=== PATIENT | male | born 1980 | race Caucasian/White ===

== ENCOUNTER 2024-08-06 02:54 | Inpatient (IN) ==
[2024-08-06 03:51] LABS: Basophils # (auto) 0.03 K/uL (0.00-0.20); Basophils % (auto) 0.2 %; Eosinophils # (auto) 0.06 K/uL (0.00-0.50); Eosinophils % (auto) 0.3 %; Hematocrit (blood only) 40.9 % (42.0-52.0); Hemoglobin 13.9 g/dl (14.0-18.0); Immature Granulocytes # (auto) 0.24 K/uL (0.01-0.20); Immature Granulocytes % (auto) 1.3 %; Lymphocytes # (auto) 2.15 K/uL (1.20-3.40); Lymphocytes % (auto) 11.6 %; Mean Corpuscular Hemoglobin 30.2 pg (25.0-34.0); Mean Corpuscular Volume 88.9 fL (80.0-100.0); Mean Platelet Volume 9.8 fL (9.4-12.4); Monocytes # (auto) 2.22 K/uL (0.11-0.59); Neutrophils # (auto) 13.78 K/uL (1.40-6.50); Neutrophils % (auto) 74.6 %; Platelet Count 448 K/uL (130-400); RDW Coefficient of Variation 13.2 % (11.5-14.5); RDW Standard Deviation 42.9 fL (36.4-46.3); White Blood Count 18.48 K/ul (4.8-10.8)
[2024-08-06 04:01] LABS: BUN Creatinine Ratio 18.7 (10-20); Bilirubin Direct 0.1 mg/dl (0-0.2); Bilirubin,Total 0.5 mg/dl (0.2-1.0); Calcium 9.4 mg/dl (8.6-10.3); Creatinine Clr Calc Pharmacy 82.2 ml/min; Magnesium 1.5 mg/dl (1.7-2.4); Potassium 3.8 mmol/L (3.5-5.1); Total Protein 8.3 gm/dl (6.0-8.3)
[2024-08-06] MEDS ORDERED: VANCOMYCIN CONSULT ACTIVE PRN (04:06)
[2024-08-06 04:07] LABS: Troponin I High Sensitivity 9.9 pg/ml (0-20)
[2024-08-06] MEDS: cefTRIAXone SODIUM 2,000 MG/50 ML BAG IV STA (04:16)
[2024-08-06] MEDS: SODIUM CHLORIDE 0.9% 1,000 ML IV ONE ×3 (04:17→06:13)
[2024-08-06 04:18] LABS: Appearance Urine Clear (Clear); Bilirubin Urine Negative (Negative); Blood Urine Negative (Negative); Color Urine Yellow; Glucose Urine UA Negative (Negative); Ketones Urine Negative (Negative); Leukocyte Esterase Urine Negative (Negative); Nitrite Urine Negative (Negative); Protein Urine Negative (Negative); Specific Gravity Urine 1.007 (1.000-1.030); Urobilinogen Urine Negative (Negative); pH Urine 6.5 (4.5-7.5)
--- NOTE | 2024-08-06 04:32 | XRay Report ---
EXAM: XR chest 1V portable CLINICAL HISTORY: [facility] INPATIENT TECHNIQUE: X-ray image of the chest is obtained in AP portable projection. COMPARISON: No prior studies are available for comparison. FINDINGS: Pulmonary Parenchyma: Right lower lung zone opacity/consolidation partially obscuring cardiac shadow, likely infectious/inflammatory. The left lung is clear. There is no evidence of consolidation, collapse, or focal opacities, and no pulmonary nodules are identified. No evidence of pleural effusion or pleural thickening. Heart and Mediastinum: Heart size and shape are normal. No mediastinal widening or masses. No hilar or mediastinal lymphadenopathy. Bony Thorax: The bony thorax appears intact without fractures or deformities. Soft Tissues: Soft tissues overlying the chest wall are unremarkable. IMPRESSION: Right lower lung zone opacity/consolidation partially obscuring cardiac shadow, likely infectious/inflammatory. Clinical/lab correlation is advised. Electronically signed by Nikhil Gomez 08-06-2024 04:31 AM
[2024-08-06] MEDS: MAGNESIUM SULFATE / D5W 1 GM/100 ML BAG IV STA (04:33)
[2024-08-06 04:35] LABS: Adenovirus PCR Not Detected (NotDetected); Bordetella parapertussis PCR Not Detected (NotDetected); Bordetella pertussis PCR Not Detected (NotDetected); Chlamydia pneumoniae PCR Not Detected (NotDetected); Coronavirus 229E PCR Not Detected (NotDetected); Coronavirus CoV-2 (COVID19)PCR Not Detected (NotDetected); Coronavirus HKU1 PCR Not Detected (NotDetected); Coronavirus NL63 PCR Not Detected (NotDetected); Coronavirus OC43PCR Not Detected (NotDetected); Human Metapneumovirus PCR Not Detected (NotDetected); Influenza A PCR Not Detected (NotDetected); Influenza B PCR Not Detected (NotDetected); Mycoplasma pneumoniae PCR Not Detected (NotDetected); Parainfluenza Virus 1 PCR Not Detected (NotDetected); Parainfluenza Virus 2 PCR Not Detected (NotDetected); Parainfluenza Virus 3 PCR Not Detected (NotDetected); Parainfluenza Virus 4 PCR Not Detected (NotDetected); Respiratory Syncytial VirusPCR Not Detected (NotDetected); Rhinovirus/Enterovirus PCR Not Detected (NotDetected)
[2024-08-06] MEDS: VANCOMYCIN HCL 1,250 MG in DEXTROSE 5% 500 ML IV ONE (04:35)
[2024-08-06] MEDS: ACETAMINOPHEN 500 MG TAB PO STA (05:03)
[2024-08-06] MEDS: KETOROLAC TROMETHAMINE 15 MG/ML VIAL IV STA (05:04)
--- NOTE | 2024-08-06 05:20 | History & Physical Report ---
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 Heparin subcu Full code Text document was generated using [employer] voice recognition software. It may contain grammatical or spelling errors. Kindly contact undersigned for clarification of any documentation item in question. History of Present Illness Chief Complaint: Chills, cough Primary Care Provider: NO PCP History obtained from patient and records. Medical history significant for hypertension, hyperparathyroidism as per records, left adrenal cancer status post surgery with lung mets status post erwin rgery, ADHD, anxiety/mood disorder, neuropathy, ongoing tobacco abuse. Patient relocated to [place] 2 months ago. Has not been able to set up local PCP services. 2 days history of chills, dry cough, SOB and pleuritic right-sided chest pain. [place] like heart was skipping beats. Some nausea, no emesis. Achy headache with cough symptoms. Burning all over. No belly pain no diarrhea. Sick contacts at home. Denies aspiration. Ceftriaxone and vancomycin administered at the ER. Medical History as above Surgical History : Right finger/thumb amputation, adrenalectomy, lobectomy Family History : Breast cancer, alcohol abuse Personal/Social history : 1/2 pack daily, occasional EtOH intake, disabled Allergies Allergy/AdvReac Type Severity Reaction Status Date / Time No Known Allergies Allergy Unverified 08/06/24 04:15 Home Medications Medication Instructions Recorded Confirmed Type gabapentin 600 mg PO QID 08/06/24 08/06/24 History hydroxyzine HCl 25 mg PO TID PRN Anxiety 08/06/24 08/06/24 History Past Med/Surg History Problem List (Updated 08/06/24 @ 06:06 by Marcela Steele DO) Hypomagnesemia (Acute) Right lower lobe pneumonia (Acute) Sepsis (Acute) Social History Smoking Status: Current every day smoker Tobacco Type: Cigarettes Feels Safe at Home: Yes Review of Systems Review of Systems: As per HPI, all other systems reviewed and negative Physical Exam Physical Exam: GENERAL: uncomfortable, ill-appearing, no respiratory distress SKIN: Normal color, warm HEENT: [place] palpebral conjunctivae, no ptosis, dry buccal mucosa NECK : Supple, no tenderness CHEST : Decreased breath sounds, no tenderness HEART : Tachycardic, no obvious murmurs ABDOMEN: Some distention, nontender EXTREMITIES : No LE swelling/tenderness, no other conspicuous deformities noted NEUROLOGIC : Coherent, no facial asymmetry, no other gross focality Results & Data Results & Data Vital Signs (Past 12 Hours) Vital Signs Temp Pulse Resp BP Pulse Ox O2 Del Method 08/06/24 03:24 128 H 08/06/24 03:24 125 H 20 96 Room Air 08/06/24 02:57 37.5 C 128 H 20 131/85 95 Room Air Laboratory Results Laboratory Results WBC 18.48 K/ul (4.8-10.8) H 08/06/24 03:24 RBC 4.60 M/uL (4.70-6.10) L 08/06/24 03:24 Hgb 13.9 g/dl (14.0-18.0) L 08/06/24 03:24 Hct 40.9 % (42.0-52.0) L 08/06/24 03:24 MCV 88.9 fL (80.0-100.0) 08/06/24 03:24 MCH 30.2 pg (25.0-34.0) 08/06/24 03:24 MCHC 34.0 g/dL (32.0-36.0) 08/06/24 03:24 RDW Std Deviation 42.9 fL (36.4-46.3) 08/06/24 03:24 RDW Coeff of Kenneth 13.2 % (11.5-14.5) 08/06/24 03:24 Plt Count 448 K/uL (130-400) H 08/06/24 03:24 MPV 9.8 fL (9.4-12.4) 08/06/24 03:24 Immature Gran % (Auto) 1.3 % 08/06/24 03:24 Neut % (Auto) 74.6 % 08/06/24 03:24 Lymph % (Auto) 11.6 % 08/06/24 03:24 [place] % (Auto) 12.0 % 08/06/24 03:24 Eos % (Auto) 0.3 % 08/06/24 03:24 Baso % (Auto) 0.2 % 08/06/24 03:24 Neut # (Auto) 13.78 K/uL (1.40-6.50) H 08/06/24 03:24 Lymph # (Auto) 2.15 K/uL (1.20-3.40) 08/06/24 03:24 [place] # (Auto) 2.22 K/uL (0.11-0.59) H 08/06/24 03:24 Eos # (Auto) 0.06 K/uL (0.00-0.50) 08/06/24 03:24 Baso # (Auto) 0.03 K/uL (0.00-0.20) 08/06/24 03:24 Immature Gran # (Auto) 0.24 K/uL (0.01-0.20) H 08/06/24 03:24 Sodium 131 mmol/L (136-145) L 08/06/24 03:24 Potassium 3.8 mmol/L (3.5-5.1) 08/06/24 03:24 Chloride 102 mmol/L (98-107) 08/06/24 03:24 Carbon Dioxide 21 mmol/L (21-32) 08/06/24 03:24 Anion Gap 8 (3-11) 08/06/24 03:24 BUN 20 mg/dl (6-23) 08/06/24 03:24 Creatinine 1.07 mg/dl (0.6-1.4) 08/06/24 03:24 Est Cr Clr Drug Dosing 82.2 ml/min 08/06/24 03:24 eGFR 87.76 08/06/24 03:24 BUN/Creatinine Ratio 18.7 (10-20) 08/06/24 03:24 Glucose 139 mg/dl (70-99(Fasting)) H 08/06/24 03:24 Lactate 1.7 mmol/L (0.4-2.0) 08/06/24 03:24 Calcium 9.4 mg/dl (8.6-10.3) 08/06/24 03:24 Magnesium 1.5 mg/dl (1.7-2.4) L 08/06/24 03:24 Total Bilirubin 0.5 mg/dl (0.2-1.0) 08/06/24 03:24 Direct Bilirubin 0.1 mg/dl (0-0.2) 08/06/24 03:24 AST 16 U/L (13-39) 08/06/24 03:24 ALT 18 U/L (7-52) 08/06/24 03:24 Alkaline Phosphatase 80 U/L (34-104) 08/06/24 03:24 Troponin I High Sens 9.9 pg/ml (0-20) 08/06/24 03:24 Total Protein 8.3 gm/dl (6.0-8.3) 08/06/24 03:24 Albumin 4.0 gm/dl (3.4-5.0) 08/06/24 03:24 Procalcitonin 0.34 ng/ml (0-0.5) 08/06/24 03:24 Urine Color Yellow 08/06/24 04:12 Urine Appearance Clear (Clear) 08/06/24 04:12 Urine pH 6.5 (4.5-7.5) 08/06/24 04:12 Ur Specific [place] 1.007 (1.000-1.030) 08/06/24 04:12 Urine Protein Negative (Negative) 08/06/24 04:12 Urine Glucose (UA) Negative (Negative) 08/06/24 04:12 Urine Ketones Negative (Negative) 08/06/24 04:12 Urine Blood Negative (Negative) 08/06/24 04:12 Urine Nitrite Negative (Negative) 08/06/24 04:12 Urine Bilirubin Negative (Negative) 08/06/24 04:12 Urine Urobilinogen Negative (Negative) 08/06/24 04:12 Ur Leukocyte Esterase Negative (Negative) 08/06/24 04:12 Adenovirus (PCR) Not Detected (NotDetected) 08/06/24 03:19 B. pertussis DNA (PCR) Not Detected (NotDetected) 08/06/24 03:19 B.parapertussis DNA PCR Not Detected (NotDetected) 08/06/24 03:19 C. pneumoniae DNA (PCR) Not Detected (NotDetected) 08/06/24 03:19 Coronavirus OC43 (PCR) Not Detected (NotDetected) 08/06/24 03:19 Coronavirus HKU1 (PCR) Not Detected (NotDetected) 08/06/24 03:19 Coronavirus 229E (PCR) Not Detected (NotDetected) 08/06/24 03:19 SARS-CoV-2 (PCR) Not Detected (NotDetected) 08/06/24 03:19 Coronavirus NL63 (PCR) Not Detected (NotDetected) 08/06/24 03:19 Human Metapneumovir PCR Not Detected (NotDetected) 08/06/24 03:19 Influenza Type A (PCR) Not Detected (NotDetected) 08/06/24 03:19 Influenza Type B (PCR) Not Detected (NotDetected) 08/06/24 03:19 M. pneumoniae (PCR) Not Detected (NotDetected) 08/06/24 03:19 Parainfluenza 1 (PCR) Not Detected (NotDetected) 08/06/24 03:19 Parainfluenza 2 (PCR) Not Detected (NotDetected) 08/06/24 03:19 Parainfluenza 3 (PCR) Not Detected (NotDetected) 08/06/24 03:19 Parainfluenza 4 (PCR) Not Detected (NotDetected) 08/06/24 03:19 RSV (PCR) Not Detected (NotDetected) 08/06/24 03:19 Entero/Rhino (PCR) Not Detected (NotDetected) 08/06/24 03:19 Impressions Chest X-Ray 08/06/24 03:06 EXAM: XR chest 1V portable CLINICAL HISTORY: [facility] INPATIENT TECHNIQUE: X-ray image of the chest is obtained in AP portable projection. COMPARISON: No prior studies are available for comparison. FINDINGS: Pulmonary Parenchyma: Right lower lung zone opacity/consolidation partially obscuring cardiac shadow, likely infectious/inflammatory. The left lung is clear. There is no evidence of consolidation, collapse, or focal opacities, and no pulmonary nodules are identified. No evidence of pleural effusion or pleural thickening. Heart and Mediastinum: Heart size and shape are normal. No mediastinal widening or masses. No hilar or mediastinal lymphadenopathy. Bony Thorax: The bony thorax appears intact without fractures or deformities. Soft Tissues: Soft tissues overlying the chest wall are unremarkable. IMPRESSION: Right lower lung zone opacity/consolidation partially obscuring cardiac shadow, likely infectious/inflammatory. Clinical/lab correlation is advised. Electronically signed by Nikhil Gomez 08-06-2024 04:31 AM Diagnostic Findings EKG as per my interpretation : Rate 125, sinus tachycardia, normal axis, incomplete RBBB, no ischemia (1) Sepsis Sepsis acute organ dysfunction status: without acute organ dysfunction Sepsis type: sepsis due to unspecified organism Qualified Code(s): A41.9 - Sepsis, unspecified organism
[2024-08-06] MEDS ORDERED: PROMETHAZINE 6.25 MG/50.25 ML BAG IV PRN (05:52)
[2024-08-06 05:59] LABS: Thyroid Stimulating Hormone 0.686 uIu/ml (0.300-4.500)
[2024-08-06] MEDS: DOXYCYCLINE HYCLATE 100 MG in DEXTROSE 5% MINI-B 100 ML IV STA (06:04)
[2024-08-06] MEDS: MAGNESIUM SULFATE / D5W 1 GM/100 ML BAG IV ONE (06:06)
--- NOTE | 2024-08-06 06:06 | Emergency Department Note ---
Impression & Plan Sepsis, Right lower lobe pneumonia, Hypomagnesemia Admit to the [facility] ED Provider Note NAME: QIAN RIOS AGE: 44 SEX: Male INFORMANT: Patient ED PROVIDER(S): Marcela Steele DO CHIEF COMPLAINT: cough, chills and bodyaches PLAN: Disposition: admit to the [facility] MEDICAL DECISION MAKING: this is a 44-year-old male patient with an extensive past medical history who presents to the emergency department complaining of cough, body aches, chills, dizziness and headache. 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 On presentation, the patient is febrile and significantly tachycardic. Blood pressure is stable. IV lock was initiated and a septic protocol was performed. 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 He was bolused with IV normal saline solution per septic protocol. Laboratory studies revealed significant leukocytosis with a white count of 18.4. H&H were stable. Platelet count was elevated at 448 most likely consistent with hemoconcentration. Sodium was low at 131. Glucose was elevated at 139. Magnesium was low at 1.5. Troponin was negative. Upper respiratory bio fire testing was negative. The patient was given oral Tylenol for his fever. He was given IV Toradol for his diffuse bodyaches. His magnesium was replaced. Chest x-ray did show evidence of right lower lobe infiltrate which is most likely the source of his infection. He was bolused with a second liter of IV normal saline to meet 30 mL/kg bolus for sepsis. His heart rate began to come down nicely. [facility] for [facility] care. Care/management discussed with: construction sales manager and [facility] Triage Nursing notes: reviewed and agree with them. 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 The patient explains that he still has 1 adrenal gland. Differential Diagnosis: Sepsis, UTI, pneumonia, COVID, URI, bronchitis, bacteremia Diagnostics, independently interpreted by me: ECG: Sinus tachycardia at [address] segment elevation or signs of ischemia. There is no ectopy. Cardiac Monitoring: Sinus tachycardia at 126 Imaging studies: Proper chest x-ray: As per my independent interpretation-the patient has evidence of right lower lobe pneumonia. HPI: 44 year old Male arrives for evaluation of cough, chills and bodyaches. Patient developed symptoms earlier today. He is convinced he has a fever and believes he may have pneumonia as he had exposure through his who is a teacher and has students who have been diagnosed with pneumonia.. PAST MEDICAL HISTORY: Adrenal cortical carcinoma, asplenic, previous lung resection SOCIAL HISTORY: Lives with his , current smoker HOME MEDICATIONS: None ALLERGIES: None VITALS: See Below PHYSICAL EXAMINATION: HEENT: Head - normocephalic and atraumatic. Pupils are equal, round, and reactive to light. Extraocular eye muscles are intact, and sclera are anicteric. Nose - moist nasal mucosa without discharge. Mouth -dry buccal mucosa. Oropharynx is nonerythematous and there is no tonsillar exudate or edema noted. Neck: Supple; no nuchal rigidity Heart: Tachycardic rate and regular rhythm. There is a normal S1 and S2 with no murmurs, clicks, or gallops appreciated. Lungs: Clear to auscultation bilaterally with no wheezes, rales, or rhonchi. Abdomen: Soft, completely nontender, nondistended, with good bowel sounds. There are no palpable pulsatile masses or hepatosplenomegaly. There is no guarding, rigidity, or rebound noted. Extremities: No evidence of cyanosis, clubbing, or edema. There are easily palpable peripheral pulses. Skin: Hot and dry with good turgor and no rashes. Emergency department treatment: electronic device monitor, IV normal saline bolus x 2 L, IV Toradol, oral oral Tylenol, IV magnesium replacement, IV Rocephin, IV vancomycin Emergency department course: The patient was evaluated in room A-2. A complete history and physical was performed. A septic protocol was performed. Patient was bolused with a liter of normal saline solution. He was given a dose of oral Tylenol for his fever. He was given a dose of IV Toradol for his diffuse bodyaches. An upper respiratory bio fire test was obtained. A portable chest x-ray was performed. An order was placed for continuous cardiac monitoring. The patient was in a sinus tachycardia at a rate of 126. A twelve-lead EKG was obtained. The patient was noted to be asplenic and there was concern for sepsis. He was immediately started on IV Rocephin and IV vancomycin after blood cultures have been obtained. He was noted to be hypomagnesemic. He was started on magnesium replacement. Portable chest x-ray revealed evidence of a pneumonia. He remained hemodynamically stable and O2 saturations were stable. I discussed the case with the [facility] and they will evaluate for further inpatient care. I have personally spent greater than 60 minutes of critical care time in the direct management of this patient. This includes bedside care, interpretation of diagnostic studies, and testing, discussion with consultants, patient, and family members, and other required patient management activities. This 60 minutes is in excess of all separately billable procedures.: [none] Past Med/Surg History Problem List (Updated 08/06/24 @ 06:06 by Marcela Steele DO) Hypomagnesemia (Acute) Right lower lobe pneumonia (Acute) Sepsis (Acute) Social History Smoking Status: Current every day smoker Tobacco Type: Cigarettes Cigarettes Per Day: 3; Second Hand Exposure: Yes; Do You Dip or Chew Tobacco: No; Tobacco Cessation Education Requested by Patient: No Hx Alcohol Use: No Hx Substance Use: Yes Last Used Substance: Days (ago) Preferred Language: Divehi Analyst Food And Beverage Required: No Beliefs That Will Affect Care: None Current Living Situation: Other Current Living Situation Comment: Living in [facility] with a roommate Feels Safe at Home: Yes Safety Concerns: Feels Safe At This Time Assistive Devices: Denture - Upper, Denture - Lower and Glasses Allergies Allergies Allergy/AdvReac Type Severity Reaction Status Date / Time No Known Allergies Allergy Unverified 08/06/24 04:15 Home Meds Home Medications Medication Instructions Recorded Confirmed gabapentin 600 mg PO QID 08/06/24 08/06/24 hydroxyzine HCl 25 mg PO TID PRN Anxiety 08/06/24 08/06/24 Results & Data (ED) Vital Signs Vital Signs - 24 hr 08/06/24 02:57 08/06/24 03:24 08/06/24 03:24 Temperature 37.5 C Temperature Source Temporal Artery Scan Pulse Rate 128 H 125 H 128 H Pulse Rate from SpO2 Sensor Pulse Rhythm Regular Respiratory Rate 20 20 Respiratory Effort / Characteristics Non-Labored Respiratory Depth Normal Blood Pressure 131/85 Blood Pressure Mean 100 Pulse Oximetry 95 96 Oxygen Delivery Method Room Air Room Air Sepsis Recent Fever Within 48 Hours No Sepsis New/Unexplained Change in Mental Status No Sepsis Action Taken by Nursing No Action Required 08/06/24 03:42 08/06/24 04:48 08/06/24 05:06 Temperature Temperature Source Pulse Rate 130 H 118 H 115 H Pulse Rate from SpO2 Sensor 130 H 119 H Pulse Rhythm Respiratory Rate 24 21 20 Respiratory Effort / Characteristics Respiratory Depth Blood Pressure 104/84 117/79 119/90 Blood Pressure Mean 90 91 99 Pulse Oximetry 95 98 Oxygen Delivery Method Sepsis Recent Fever Within 48 Hours Sepsis New/Unexplained Change in Mental Status Sepsis Action Taken by Nursing 08/06/24 05:30 Temperature Temperature Source Pulse Rate 118 H Pulse Rate from SpO2 Sensor 118 H Pulse Rhythm Respiratory Rate 17 Respiratory Effort / Characteristics Respiratory Depth Blood Pressure 111/77 Blood Pressure Mean 88 Pulse Oximetry 96 Oxygen Delivery Method Sepsis Recent Fever Within 48 Hours Sepsis New/Unexplained Change in Mental Status Sepsis Action Taken by Nursing Laboratory Data 08/06/24 03:24 08/06/24 03:24 Lab Results 08/06/24 08/06/24 08/06/24 Range/Units 03:19 03:24 04:12 WBC 18.48 H (4.8-10.8) K/ul RBC 4.60 L (4.70-6.10) M/uL Hgb 13.9 L (14.0-18.0) g/dl Hct 40.9 L (42.0-52.0) % MCV 88.9 (80.0-100.0) fL MCH 30.2 (25.0-34.0) pg MCHC 34.0 (32.0-36.0) g/dL RDW Std Deviation 42.9 (36.4-46.3) fL RDW Coeff of Kenneth 13.2 (11.5-14.5) % Plt Count 448 H (130-400) K/uL MPV 9.8 (9.4-12.4) fL Immature Gran % (Auto) 1.3 % Neut % (Auto) 74.6 % Lymph % (Auto) 11.6 % [place] % (Auto) 12.0 % Eos % (Auto) 0.3 % Baso % (Auto) 0.2 % Neut # (Auto) 13.78 H (1.40-6.50) K/uL Lymph # (Auto) 2.15 (1.20-3.40) K/uL [place] # (Auto) 2.22 H (0.11-0.59) K/uL Eos # (Auto) 0.06 (0.00-0.50) K/uL Baso # (Auto) 0.03 (0.00-0.20) K/uL Immature Gran # (Auto) 0.24 H (0.01-0.20) K/uL Sodium 131 L (136-145) mmol/L Potassium 3.8 (3.5-5.1) mmol/L Chloride 102 (98-107) mmol/L Carbon Dioxide 21 (21-32) mmol/L Anion Gap 8 (3-11) BUN 20 (6-23) mg/dl Creatinine 1.07 (0.6-1.4) mg/dl Est Cr Clr Drug Dosing 82.2 ml/min eGFR 87.76 BUN/Creatinine Ratio 18.7 (10-20) Glucose 139 H (70-99(Fasting)) mg/dl Estimat Average Glucose 120 mg/dl Hemoglobin A1c 5.8 H (4.5-5.6) % Osmolality 283 (280-300) mOsm/kg Lactate 1.7 (0.4-2.0) mmol/L Calcium 9.4 (8.6-10.3) mg/dl Magnesium 1.5 L (1.7-2.4) mg/dl Total Bilirubin 0.5 (0.2-1.0) mg/dl Direct Bilirubin 0.1 (0-0.2) mg/dl AST 16 (13-39) U/L ALT 18 (7-52) U/L Alkaline Phosphatase 80 (34-104) U/L Troponin I High Sens 9.9 (0-20) pg/ml Total Protein 8.3 (6.0-8.3) gm/dl Albumin 4.0 (3.4-5.0) gm/dl Procalcitonin 0.34 (0-0.5) ng/ml TSH 0.686 (0.300-4.500) uIu/ml Urine Color Yellow Urine Appearance Clear (Clear) Urine pH 6.5 (4.5-7.5) Ur Specific [place] 1.007 (1.000-1.030) Urine Protein Negative (Negative) Urine Glucose (UA) Negative (Negative) Urine Ketones Negative (Negative) Urine Blood Negative (Negative) Urine Nitrite Negative (Negative) Urine Bilirubin Negative (Negative) Urine Urobilinogen Negative (Negative) Ur Leukocyte Esterase Negative (Negative) Adenovirus (PCR) Not Detected (NotDetected) B. pertussis DNA (PCR) Not Detected (NotDetected) B.parapertussis DNA PCR Not Detected (NotDetected) C. pneumoniae DNA (PCR) Not Detected (NotDetected) Coronavirus OC43 (PCR) Not Detected (NotDetected) Coronavirus HKU1 (PCR) Not Detected (NotDetected) Coronavirus 229E (PCR) Not Detected (NotDetected) SARS-CoV-2 (PCR) Not Detected (NotDetected) Coronavirus NL63 (PCR) Not Detected (NotDetected) Human Metapneumovir PCR Not Detected (NotDetected) Influenza Type A (PCR) Not Detected (NotDetected) Influenza Type B (PCR) Not Detected (NotDetected) M. pneumoniae (PCR) Not Detected (NotDetected) Parainfluenza 1 (PCR) Not Detected (NotDetected) Parainfluenza 2 (PCR) Not Detected (NotDetected) Parainfluenza 3 (PCR) Not Detected (NotDetected) Parainfluenza 4 (PCR) Not Detected (NotDetected) RSV (PCR) Not Detected (NotDetected) Entero/Rhino (PCR) Not Detected (NotDetected) Administered Medications Acetaminophen (Acetaminophen 325 Mg Tab) 650 mg PO QID PRN PRN Reason: pain/fever Stop: 09/05/24 05:51 Last Admin: 08/06/24 12:39 Dose: 650 mg Documented By: NARESH Docusate Sodium (Docusate Sodium 100 Mg Cap) 100 mg PO QAM [facility] Stop: 09/05/24 11:59 Last Admin: 08/06/24 12:34 Dose: Not Given Documented By: NARESH Enoxaparin Sodium (Enoxaparin Inj 30 Mg/0.3 Ml Syr) 30 mg SQ QAM [facility] Stop: 09/05/24 08:59 Last Admin: 08/06/24 09:46 Dose: 30 mg Documented By: NARESH Gabapentin (Gabapentin 600 Mg Tab) 600 mg PO QID [place] Stop: 09/05/24 08:59 Last Admin: 08/06/24 17:51 Dose: 600 mg Documented By: Admin: 08/06/24 12:35 Dose: 600 mg Documented By: Admin: 08/06/24 09:47 Dose: 600 mg Documented By: NARESH Guaifenesin (Guaifenesin 600 Mg Tabcr) 600 mg PO Q12 ANSON Stop: 09/05/24 07:14 Last Admin: 08/06/24 09:47 Dose: 600 mg Documented By: NARESH Hydroxyzine HCl (Hydroxyzine Hcl 25 Mg Tab) 25 mg PO TID PRN PRN Reason: Anxiety Stop: 09/05/24 05:58 Last Admin: 08/06/24 09:17 Dose: 25 mg Documented By: NARESH Oxycodone HCl (Oxycodone Hcl Ir 5 Mg Tab (Immediate Release)) 5 mg PO Q4H PRN PRN Reason: Pain Stop: 08/20/24 05:51 Last Admin: 08/06/24 17:51 Dose: 5 mg Documented By: Admin: 08/06/24 09:17 Dose: 5 mg Documented By: NARESH Discontinued Medications Acetaminophen (Acetaminophen 500 Mg Tab) 1,000 mg PO NOW STA Stop: 08/06/24 04:52 Last Admin: 08/06/24 05:03 Dose: 1,000 mg Documented By: JEIYM Sodium Chloride (Nss) 1,000 mls @ 999 mls/hr IV .Q1H1M ONE Stop: 08/06/24 05:01 Last Infusion: 08/06/24 06:20 Dose: Infused Documented By: Admin: 08/06/24 04:17 Dose: 999 mls/hr Documented By: JEIMY Vancomycin HCl 1,250 mg/ (Dextrose) 525 mls @ 200 mls/hr IV NOW ONE Stop: 08/06/24 06:43 Last Infusion: 08/06/24 06:20 Dose: Infused Documented By: Admin: 08/06/24 04:35 Dose: 200 mls/hr Documented By: JEIMY Ceftriaxone Sodium (Rocephin) 2,000 mg in 50 mls @ 100 mls/hr IV NOW STA Stop: 08/06/24 04:35 Last Infusion: 08/06/24 04:32 Dose: Infused Documented By: Admin: 08/06/24 04:16 Dose: 100 mls/hr Documented By: JEIMY Sodium Chloride (Nss) 1,000 mls @ 999 mls/hr IV .Q1H1M ONE Stop: 08/06/24 05:12 Last Infusion: 08/06/24 06:20 Dose: Infused Documented By: Admin: 08/06/24 04:18 Dose: 999 mls/hr Documented By: JEIMY Magnesium Sulfate/Dextrose (Magnesium Sulfate / D5w) 1 gm in 100 mls @ 100 mls/hr IV NOW STA Stop: 08/06/24 05:16 Last Infusion: 08/06/24 06:20 Dose: Infused Documented By: Admin: 08/06/24 04:33 Dose: 100 mls/hr Documented By: JEIMY Magnesium Sulfate/Dextrose (Magnesium Sulfate / D5w) 1 gm in 100 mls @ 50 mls/hr IV ONE ONE Stop: 08/06/24 07:11 Last Infusion: 08/06/24 08:25 Dose: Infused Documented By: Admin: 08/06/24 06:06 Dose: 50 mls/hr Documented By: JEIMY Doxycycline Hyclate 100 mg/ (Dextrose) 100 mls @ 50 mls/hr IV NOW STA Stop: 08/06/24 07:13 Last Infusion: 08/06/24 08:21 Dose: Infused Documented By: Admin: 08/06/24 06:04 Dose: 50 mls/hr Documented By: JEIMY Sodium Chloride (Nss) 1,000 mls @ 80 mls/hr IV .[id number] ONE Stop: 08/06/24 18:23 Last Admin: 08/06/24 06:13 Dose: 80 mls/hr Documented By: JEIMY Famotidine (Pepcid 20mg Iv Push) 20 mg in 5 mls @ 2.5 mls/min IV NOW STA Stop: 08/06/24 05:55 Last Admin: 08/06/24 06:13 Dose: 2.5 mls/min Documented By: JEIMY Ioversol (Optiray 320 125ml) 112 ml IV ONCE ONE Stop: 08/06/24 06:44 Last Admin: 08/06/24 06:44 Dose: 112 ml Documented By: CORBY Ketorolac Tromethamine (Ketorolac Tromethamine 15 Mg/Ml Vial) 15 mg IV NOW STA Stop: 08/06/24 04:52 Last Admin: 08/06/24 05:04 Dose: 15 mg Documented By: JEIMY Imaging Data Radiologist's Impression: Chest X-Ray 08/06/24 03:06 EXAM: XR chest 1V portable CLINICAL HISTORY: SEPSIS JMF INPATIENT TECHNIQUE: X-ray image of the chest is obtained in AP portable projection. COMPARISON: No prior studies are available for comparison. FINDINGS: Pulmonary Parenchyma: Right lower lung zone opacity/consolidation partially obscuring cardiac shadow, likely infectious/inflammatory. The left lung is clear. There is no evidence of consolidation, collapse, or focal opacities, and no pulmonary nodules are identified. No evidence of pleural effusion or pleural thickening. Heart and Mediastinum: Heart size and shape are normal. No mediastinal widening or masses. No hilar or mediastinal lymphadenopathy. Bony Thorax: The bony thorax appears intact without fractures or deformities. Soft Tissues: Soft tissues overlying the chest wall are unremarkable. IMPRESSION: Right lower lung zone opacity/consolidation partially obscuring cardiac shadow, likely infectious/inflammatory. Clinical/lab correlation is advised. Electronically signed by Nikhil Gomez 08-06-2024 04:31 AM Discharge Plan Visit Data Chief Complaint: Illness Stated Complaint: POSSIBLE PNEUMONIA,RENAL CX PT ED Provider: Marcela Steele Discharge Problem: Sepsis, Right lower lobe pneumonia, Hypomagnesemia Patient Disposition: Admitted As Inpatient Discharge Instructions Interventions: ED Discharge Assessment Last Done: 08/06/24 08:22 Discharge Problem: Sepsis Qualifiers: Sepsis type: sepsis due to unspecified organism Sepsis acute organ dysfunction status: without acute organ dysfunction Qualified Code(s): A41.9 - Sepsis, unspecified organism
[2024-08-06] MEDS: FAMOTIDINE 20MG IV PUSH 20 MG/5 ML SYR IV STA (06:13)
[2024-08-06] MEDS: OPTIRAY 320 125ml IV ONE (06:44)
--- NOTE | 2024-08-06 07:28 | CT Scan Report ---
EXAM: CT angio chest PE protocol CLINICAL HISTORY: Pt c/o having chills, "heart skipping beats and i''m forgetting to breathe," cough - all started today. 112ml opti 320 INPATIENT TECHNIQUE: CT angiography of the chest was performed with and without intravenous contrast with the following protocol: axial images with, reconstructed coronal and sagittal images. Non-contrast images were initially acquired, followed by contrast-enhanced images (112ml Optiray 320) in arterial and venous phases. Intravenous contrast [name and volume] was administered using automated injection techniques. Bolus tracking was employed to optimize arterial phase imaging. One of these 3D techniques was utilized: Maximum Intensity Pixel (MIP), 3D Reconstructed Images, Volume Rendered Images, Surface Shaded Rendering. One of the following dose reduction techniques was utilized for this exam: Automated exposure control, adjustment of the mA and/or kV according to patient size, and use of iterative reconstruction. COMPARISON: x-ray 08/06/2024. FINDINGS: Aorta and Great Vessels: Ascending Aorta: Normal in caliber, no aneurysm, dissection, or significant atherosclerosis. Aortic Arch: Normal in caliber, no aneurysm, dissection, or significant atherosclerosis. Descending Aorta: Normal in caliber, no aneurysm, dissection, or significant atherosclerosis. Pulmonary Arteries: The main pulmonary artery and its branches are patent. No evidence of pulmonary embolism or significant stenosis. Heart: Cardiac Chambers: Normal in size. No evidence of cardiomegaly. Pericardium: No pericardial effusion or thickening. Lungs and Pleura: An ill-defined consolidation was noted in the right lower lobe with an air bronchogram suggesting pneumonia. Patchy small consolidations were noted in the right middle lobe and the right upper lobe. No pleural effusion or pleural thickening. Mediastinum: A few moderate-sized lymph nodes were in the right koki and behind the SVC measuring up to 1.7cm representing reactive lymph nodes, A few calcified mediastinal lymph nodes (nonspecific) Normal appearance of the trachea and central bronchi. Hilar Structures: Hilar structures are normal without enlargement. Chest Wall: No mass lesions or abnormalities in the chest wall. Vascular Structures: Superior Vena Cava: Patent without evidence of stenosis or thrombus. Inferior Vena Cava: Patent without evidence of stenosis or thrombus. Bones and Soft Tissues: No fractures, lytic, or blastic lesions of the visualized bony structures. Soft tissues are unremarkable. IMPRESSION: 1. No evidence of pulmonary embolism or significant stenosis. 2. An ill-defined consolidation was noted in the right lower lobe with an air bronchogram suggesting pneumonia, with a few reactive mediastinal lymph nodes Electronically signed by Rosenda Sosa 08-06-2024 07:28 AM
[2024-08-06 07:41] LABS: Estimated Average Glucose 120 mg/dl; Hemoglobin A1C 5.8 % (4.5-5.6)
[2024-08-06] MEDS: hydrOXYzine HCl 25 MG TAB PO PRN (09:17)
[2024-08-06] MEDS: oxyCODONE HCL IR 5 MG TAB (IMMEDIATE RELEASE) PO PRN (09:17)
[2024-08-06] MEDS: ENOXAPARIN INJ 30 MG/0.3 ML SYR SQ SCH (09:46)
[2024-08-06] MEDS: guaiFENesin 600 MG TABCR PO SCH (09:47)
[2024-08-06] MEDS: GABAPENTIN 600 MG TAB PO SCH (09:47)
[2024-08-06] MEDS: DOCUSATE SODIUM 100 MG CAP PO SCH (12:34)
[2024-08-06] MEDS: ACETAMINOPHEN 325 MG TAB PO PRN (12:39)
--- NOTE | 2024-08-06 15:32 | Electrocardiogram Report ---
Test Reason : Blood Pressure : */* mmHG Vent. Rate : 125 BPM Atrial Rate : 125 BPM P-R Int : 152 ms QRS Dur : 92 ms QT Int : 304 ms P-R-T Axes : 71 53 69 degrees QTcB Int : 438 ms Sinus tachycardia Incomplete right bundle branch block Borderline ECG No previous ECGs available Confirmed by Jordi Tamayo ([id number]) on 08/06/2024 3:31:42 PM Referred By: REFERRED SELF Confirmed By: Jordi Tamayo
[2024-08-06] MEDS: DOXYCYCLINE HYCLATE 100 MG CAP PO SCH (20:39)
[2024-08-07] MEDS: NSS + 20MEQ KCL 20 MEQ/1,000 ML BAG IV ONE (00:43)
[2024-08-07] MEDS: cefTRIAXone SODIUM 2,000 MG/50 ML BAG IV SCH (04:03)
[2024-08-07 06:16] LABS: Basophils # (auto) 0.08 K/uL (0.00-0.20); Basophils % (auto) 0.4 %; Eosinophils # (auto) 0.11 K/uL (0.00-0.50); Eosinophils % (auto) 0.5 %; Hematocrit (blood only) 34.9 % (42.0-52.0); Hemoglobin 11.7 g/dl (14.0-18.0); Immature Granulocytes # (auto) 0.39 K/uL (0.01-0.20); Immature Granulocytes % (auto) 1.8 %; Lymphocytes # (auto) 3.89 K/uL (1.20-3.40); Lymphocytes % (auto) 17.6 %; Mean Corpuscular Hemoglobin 30.1 pg (25.0-34.0); Mean Corpuscular Hgb Conc 33.5 g/dL (32.0-36.0); Mean Corpuscular Volume 89.7 fL (80.0-100.0); Monocytes % (auto) 9.9 %; Neutrophils # (auto) 15.46 K/uL (1.40-6.50); Neutrophils % (auto) 69.8 %; Platelet Count 420 K/uL (130-400); RDW Coefficient of Variation 13.8 % (11.5-14.5); Red Blood Count 3.89 M/uL (4.70-6.10); White Blood Count 22.13 K/ul (4.8-10.8)
[2024-08-07 06:38] LABS: BUN Creatinine Ratio 15.5 (10-20); Calcium 8.7 mg/dl (8.6-10.3); Creatinine Clr Calc Pharmacy 76.1 ml/min; Magnesium 1.7 mg/dl (1.7-2.4); Phosphorus 2.3 mg/dl (2.5-4.9); Potassium 4.2 mmol/L (3.5-5.1)
[2024-08-07] MEDS ORDERED: POTASSIUM PHOS 3 MMOL/1 ML INFUSION IV STA (07:34)
--- NOTE | 2024-08-07 07:41 | Hospitalist Progress Note ---
Date of Service August 07, 2024 Assessment & Plan (1) Sepsis: Plan: Secondary to community-acquired pneumonia Chest pain secondary to above rule out PE given pleuritic discomfort CT chest IMPRESSION: 1. No evidence of pulmonary embolism or significant stenosis. 2. 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 Heparin subcu Full code Pt relocated to this area about 2 months ago - will need to establish w/ PCP Admission and Anticipated Discharge Date Admission Date: August 06, 2024 Subjective Pt seen in follow up of [facility] Laying in bed in [facility], overall feeling better. Still with headache + cough no chest pain or shortness of breath, no abd. pain, n/v Review of Systems Review of Systems: All systems reviewed & are unremarkable except as noted in Subjective Physical Exam Physical Exam: GENERAL: thin M in NAD HEENT: NC/AT, EOMI NECK : Supple CHEST : Decreased breath sounds, no tenderness HEART : mildly tachycardic, no obvious murmurs ABDOMEN: soft, some distention, nontender EXTREMITIES : No LE swelling/tenderness, moves extremities NEUROLOGIC : awake, alert, oriented, answers appropriately, no facial asymmetry, moves extremities SKIN: warm, dry Results & Data Results & Data Vital Signs (Past 12 Hours) Vital Signs Temp Pulse Pulse Resp BP Pulse Ox O2 Del Method 08/07/24 07:00 94 H 08/07/24 03:14 37 C 90 16 105/71 97 Room Air 08/06/24 23:25 37 C 102 H 14 116/78 97 Room Air 08/06/24 21:50 110 H 08/06/24 21:45 Room Air 08/06/24 19:36 36.5 C 91 H 16 104/70 96 Room Air Laboratory Results 08/07/24 08/06/24 Range/Units 05:46 03:24 WBC 22.13 H (4.8-10.8) K/ul RBC 3.89 L (4.70-6.10) M/uL Hgb 11.7 L (14.0-18.0) g/dl Hct 34.9 L (42.0-52.0) % MCV 89.7 (80.0-100.0) fL MCH 30.1 (25.0-34.0) pg MCHC 33.5 (32.0-36.0) g/dL RDW Std Deviation 45.0 (36.4-46.3) fL RDW Coeff of Kenneth 13.8 (11.5-14.5) % Plt Count 420 H (130-400) K/uL MPV 10.0 (9.4-12.4) fL Immature Gran % (Auto) 1.8 % Neut % (Auto) 69.8 % Lymph % (Auto) 17.6 % [place] % (Auto) 9.9 % Eos % (Auto) 0.5 % Baso % (Auto) 0.4 % Neut # (Auto) 15.46 H (1.40-6.50) K/uL Lymph # (Auto) 3.89 H (1.20-3.40) K/uL [place] # (Auto) 2.20 H (0.11-0.59) K/uL Eos # (Auto) 0.11 (0.00-0.50) K/uL Baso # (Auto) 0.08 (0.00-0.20) K/uL Immature Gran # (Auto) 0.39 H (0.01-0.20) K/uL Sodium 136 (136-145) mmol/L Potassium 4.2 (3.5-5.1) mmol/L Chloride 109 H (98-107) mmol/L Carbon Dioxide 23 (21-32) mmol/L Anion Gap 4 (3-11) BUN 15 (6-23) mg/dl Creatinine 0.97 (0.6-1.4) mg/dl Est Cr Clr Drug Dosing 76.1 ml/min eGFR 98.72 BUN/Creatinine Ratio 15.5 (10-20) Glucose 104 H (70-99(Fasting)) mg/dl Estimat Average Glucose 120 mg/dl Hemoglobin A1c 5.8 H (4.5-5.6) % Calcium 8.7 (8.6-10.3) mg/dl Phosphorus 2.3 L (2.5-4.9) mg/dl Magnesium 1.7 (1.7-2.4) mg/dl Medications Administered Current Inpatient Medications Acetaminophen (Acetaminophen 325 Mg Tab) 650 mg PO QID PRN PRN Reason: pain/fever Stop: 09/05/24 05:51 Last Admin: 08/06/24 12:39 Dose: 650 mg Docusate Sodium (Docusate Sodium 100 Mg Cap) 100 mg PO QAM [facility] Stop: 09/05/24 11:59 Last Admin: 08/06/24 12:34 Dose: Not Given Doxycycline Hyclate (Doxycycline Hyclate 100 Mg Cap) 100 mg PO BID [facility] Stop: 08/13/24 20:59 Last Admin: 08/06/24 20:39 Dose: 100 mg Enoxaparin Sodium (Enoxaparin Inj 30 Mg/0.3 Ml Syr) 30 mg SQ QAM [facility] Stop: 09/05/24 08:59 Last Admin: 08/06/24 09:46 Dose: 30 mg Gabapentin (Gabapentin 600 Mg Tab) 600 mg PO QID [facility] Stop: 09/05/24 08:59 Last Admin: 08/06/24 20:39 Dose: 600 mg Guaifenesin (Guaifenesin 600 Mg Tabcr) 600 mg PO Q12 [facility] Stop: 09/05/24 07:14 Last Admin: 08/06/24 20:39 Dose: 600 mg Hydroxyzine HCl (Hydroxyzine Hcl 25 Mg Tab) 25 mg PO TID PRN PRN Reason: Anxiety Stop: 09/05/24 05:58 Last Admin: 08/06/24 09:17 Dose: 25 mg Promethazine HCl (Phenergan) 6.25 mg in 50.25 mls @ 201 mls/hr IV Q6H PRN PRN Reason: Nausea And Vomiting Stop: 09/05/24 05:51 Ceftriaxone Sodium (Rocephin) 2,000 mg in 50 mls @ 100 mls/hr IV Q24H [facility] Stop: 08/14/24 03:59 Last Infusion: 08/07/24 04:33 Dose: Infused Potassium Chloride/Sodium Chloride (Normal Saline W/20 Meq Kcl) 20 meq in 1,000 mls @ 100 mls/hr IV .Q10H ONE Stop: 08/07/24 09:42 Last Admin: 08/07/24 00:43 Dose: 100 mls/hr Magnesium Sulfate/Dextrose (Magnesium Sulfate / D5w) 1 gm in 100 mls @ 50 mls/hr IV ONE ONE Stop: 08/07/24 09:33 Oxycodone HCl (Oxycodone Hcl Ir 5 Mg Tab (Immediate Release)) 5 mg PO Q4H PRN PRN Reason: Pain Stop: 08/20/24 05:51 Last Admin: 08/07/24 00:47 Dose: 5 mg Potassium Phosphate (Potassium Phos 3 Mmol/1 Ml Infusion) 6 mmol IV NOW STA Stop: 08/07/24 07:35 (1) Sepsis Sepsis acute organ dysfunction status: without acute organ dysfunction Sepsis type: sepsis due to unspecified organism Qualified Code(s): A41.9 - Sepsis, unspecified organism
[2024-08-07] MEDS: POT PHOSPHATE MONOBASIC W/ SOD TAB PO SCH (08:39)
[2024-08-07] MEDS: MAGNESIUM SULFATE / D5W 1 GM/100 ML BAG IV ONE (08:39)
[2024-08-07] MEDS: TAMSULOSIN HCL 0.4 MG CAP PO SCH (17:46)
[2024-08-07] MEDS: SODIUM CHLORIDE 0.65% NA SOLN 45 ML (OCEAN) SCH (17:48)
[2024-08-08 08:32] LABS: Mean Corpuscular Hemoglobin 30.2 pg (25.0-34.0); Mean Corpuscular Hgb Conc 34.2 g/dL (32.0-36.0); Mean Corpuscular Volume 88.4 fL (80.0-100.0); Mean Platelet Volume 9.7 fL (9.4-12.4); Platelet Count 465 K/uL (130-400); RDW Coefficient of Variation 13.7 % (11.5-14.5); RDW Standard Deviation 44.5 fL (36.4-46.3); White Blood Count 10.23 K/ul (4.8-10.8)
[2024-08-08 08:56] LABS: Phosphorus 4.3 mg/dl (2.5-4.9)
[2024-08-08 09:47] LABS: BUN Creatinine Ratio 18.7 (10-20); Calcium 9.1 mg/dl (8.6-10.3); Creatinine Clr Calc Pharmacy 80.9 ml/min; Magnesium 1.9 mg/dl (1.7-2.4); Potassium 3.9 mmol/L (3.5-5.1)
[2024-08-08 15:53] VITALS: BP 138/91; PULSE 91; RESP 16; TEMP 97.9; O2SAT 98
--- NOTE | 2024-08-08 16:32 | Discharge Summary ---
Date of Service August 08, 2024 Admission HPI Per Admitting Provider History obtained from patient and records. Medical history significant for hypertension, hyperparathyroidism as per records, left adrenal cancer status post surgery with lung mets status post surgery, ADHD, anxiety/mood disorder, neuropathy, ongoing tobacco abuse. Patient relocated to [place] 2 months ago. Has not been able to set up local PCP services. 2 days history of chills, dry cough, SOB and pleuritic right-sided chest pain. [place] like heart was skipping beats. Some nausea, no emesis. Achy headache with cough symptoms. Burning all over. No belly pain no diarrhea. Sick contacts at home. Denies aspiration. Ceftriaxone and vancomycin administered at the ER. Medical History as above Surgical History : Right finger/thumb amputation, adrenalectomy, lobectomy Family History : Breast cancer, alcohol abuse Personal/Social history : 1/2 pack daily, occasional EtOH intake, disabled Admission Exam Per Admitting Provider GENERAL: uncomfortable, ill-appearing, no respiratory distress SKIN: Normal color, warm HEENT: [place] palpebral conjunctivae, no ptosis, dry buccal mucosa NECK : Supple, no tenderness CHEST : Decreased breath sounds, no tenderness HEART : Tachycardic, no obvious murmurs ABDOMEN: Some distention, nontender EXTREMITIES : No LE swelling/tenderness, no other conspicuous deformities noted NEUROLOGIC : Coherent, no facial asymmetry, no other gross focality Principal Diagnosis Sepsis secondary to community acquired pneumonia Discharge Exam GENERAL: thin M in NAD HEENT: NC/AT, EOMI NECK : Supple CHEST : CTAB, no rhonchi or wheezing HEART : rrr, no obvious murmurs ABDOMEN: soft, some distention, nontender EXTREMITIES : No LE swelling/tenderness, moves extremities NEUROLOGIC : awake, alert, oriented, answers appropriately, no facial asymmetry, moves extremities SKIN: warm, dry Discharge Data Allergies Allergy/AdvReac Type Severity Reaction Status Date / Time No Known Allergies Allergy Unverified 08/06/24 04:15 Consultations 08/06/24 05:03 ED Decision to Admit Stat Ordered Studies 08/06/24 05:51 CT angio chest PE protocol Stat FINDINGS: Aorta and Great Vessels: Ascending Aorta: Normal in caliber, no aneurysm, dissection, or significant atherosclerosis. Aortic Arch: Normal in caliber, no aneurysm, dissection, or significant atherosclerosis. Descending Aorta: Normal in caliber, no aneurysm, dissection, or significant atherosclerosis. Pulmonary Arteries: The main pulmonary artery and its branches are patent. No evidence of pulmonary embolism or significant stenosis. Heart: Cardiac Chambers: Normal in size. No evidence of cardiomegaly. Pericardium: No pericardial effusion or thickening. Lungs and Pleura: An ill-defined consolidation was noted in the right lower lobe with an air bronchogram suggesting pneumonia. Patchy small consolidations were noted in the right middle lobe and the right upper lobe. No pleural effusion or pleural thickening. Mediastinum: A few moderate-sized lymph nodes were in the right koki and behind the SVC measuring up to 1.7cm representing reactive lymph nodes, A few calcified mediastinal lymph nodes (nonspecific) Normal appearance of the trachea and central bronchi. Hilar Structures: Hilar structures are normal without enlargement. Chest Wall: No mass lesions or abnormalities in the chest wall. Vascular Structures: Superior Vena Cava: Patent without evidence of stenosis or thrombus. Inferior Vena Cava: Patent without evidence of stenosis or thrombus. Bones and Soft Tissues: No fractures, lytic, or blastic lesions of the visualized bony structures. Soft tissues are unremarkable. IMPRESSION: 1. No evidence of pulmonary embolism or significant stenosis. 2. An ill-defined consolidation was noted in the right lower lobe with an air bronchogram suggesting pneumonia, with a few reactive mediastinal lymph nodes Hospital Course (1) Sepsis: Secondary to community-acquired pneumonia Chest pain secondary to above rule out PE given pleuritic discomfort CT chest IMPRESSION: 1. No evidence of pulmonary embolism or significant stenosis. 2. 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, currently in remission as per patient ADHD, anxiety/mood disorder, at baseline Hyperglycemia rule out DM, current A1c 5.8% - will need outpt follow up ongoing tobacco abuse, Nicotine patch as needed Pt relocated to this area about 2 months ago - will need to establish w/ PCP Total Time Total Time Spent Total Time Spent (In Minutes): 40 Discharge Plan Discharge Items Patient Disposition: Home - Self-Care Reason For Visit: SEPSIS Discharge Diagnosis: Sepsis secondary to community acquired pneumonia Activity: Per Instructions section Non-emergency contact: Primary Care Provider Call non-emergency contact if: you have any medication questions and your symptoms worsen Follow-up/Referrals: Jean-Claude Mcgee M.D. [Outside Practitioners] - (Date & Time 08/13/2024 9:00 AM Provider Jean-Claude Mcgee MD Department Family Practice [facility] ) Diet: Regular Addtl Attending Provider Instructions: Follow up with primary care physician within 1 week. The appointment was scheduled for you. Finish antibiotic treatment as prescribed. Recommend to use nasal spray. Also recommend to use flutter valve and incentive spirometry. Pending Studies at Discharge: Yes Studies:: final results of blood cultx Stand-Alone Forms: My dotloop, Smoking Cessation Medications and DC Order Prescriptions: New tamsulosin 0.4 mg Capsule 0.4 mg PO QAM Qty: 30 0RF doxycycline hyclate 100 mg Capsule 100 mg PO BID Qty: 10 0RF guaifenesin [Mucinex] 600 mg Tablet Extended Release 12hr 600 mg PO Q12 Qty: 14 0RF cefuroxime axetil 500 mg tablet 500 mg PO BID Qty: 10 0RF Advanced Probiotic 625 mg (10 billion cell) Capsule 1 cap PO DAILY Qty: 10 0RF Continued gabapentin 600 mg PO QID hydroxyzine HCl 25 mg PO TID PRN (Reason: Anxiety) Discharge Orders: Discharge Order (Routine); Ordered 08/08/24 Ordered By: Smason Cooper Admission Data Admit Date/Time: 08/06/24 05:48 Attending Provider: Samson Cooper Admit Provider: Dillon Juares Primary Care Provider: PCP,NO Other Providers: Dillon Juares
[2024-08-08] MEDS: ADVANCED PROBIOTIC 625 MG CAPSULE PO SCH (17:03)
== END 2024-08-08 17:12 | disposition home or self-care (01) | DRG 871 ==
LOC: ED 02:54 → 2N 05:48
DX: Z85.858 Personal history of malignant neoplasm of other endocrine glands; F90.9 Attention-deficit hyperactivity disorder, unspecified type; J18.9 Pneumonia, unspecified organism; A41.9 Sepsis, unspecified organism; E21.3 Hyperparathyroidism, unspecified; E83.42 Hypomagnesemia; I10 Essential (primary) hypertension

== ENCOUNTER 2025-01-09 20:28 | Inpatient (IN) ==
--- NOTE | 2025-01-09 21:02 | Emergency Department Note ---
Impression & Plan Flu-like symptoms, Tachycardia, S/P splenectomy ED Provider Note NAME: QIAN RIOS AGE: 44 SEX: Male INFORMANT: Patient ED PROVIDER(S): Perry Monroy MD CHIEF COMPLAINT: Flulike symptoms PLAN: Disposition: Admitted Outpatient prescription management: none Referral: None MEDICAL DECISION MAKING: Patient presented with flulike symptoms. He was tachycardic and uncomfortable. Symptomatic treatment was performed. He was hydrated. He was treated with Tylenol, DuoNeb, and Hycodan. Patient was still tachycardic. He then became febrile. He was treated with Toradol. He requested something for reflux and was given Maalox. He was also treated with Pepcid IV. Chest x-ray shows a bilateral pneumonia. Laboratory testing was unremarkable. Blood cultures were done. Patient was treated with IV Rocephin and doxycycline. On reassessment the patient had abdominal bloating and discomfort. He was treated with a dose of IV Dilaudid. Patient then had a large bowel movement that was nonbloody and felt significantly better. Patient had additional IV fluids administered. Given the bilateral pneumonia, splenectomy status and persistent tachycardia further evaluation and management in the hospital was deemed appropriate. Consultation was made with Dr. Humphreys of the [facility] service. Case discussed and diagnostics were reviewed. Patient was evaluated in the ER for further management. Care/management discussed with: facilities project manager Level of care consideration(s): After review of the information above and other included data, I feel the patient requires escalation of care to admission Triage Nursing notes: reviewed and agree them. Vital Signs: reviewed and remarkable for tachycardia Additional History obtained from: none Chronic Medical/Social Conditions affecting care: History of left lower lobectomy, right upper lobe lobectomy, splenectomy Prior/ Outside/ External records reviewed: none Differential Diagnosis: Viral syndrome, pharyngitis, pneumonia, influenza, meningitis, urinary tract infection, sepsis, bacteremia, as well as other pathologies. Diagnostics, independently interpreted by me: ECG: none Cardiac Monitoring: Cardiac monitoring ordered by me: The patient was placed on continuous cardiac monitoring and observed. It revealed sinus tachycardia at 136 bpm. Medical decision rules: none Imaging studies: Chest x-ray reveals right lower lobe infiltrate and left lower lung infiltrate. HPI: 44 year old Male arrives for evaluation of flulike symptoms. This started 5 days ago and is worsening per patient. The patient also notes the following associated symptoms, sinus congestion, nasal drainage, fullness in his ears, sore throat intermittently, headache, acid reflux sensations, nausea, muscle and backaches, difficulty breathing due to congestion. The patient has tried [id number] medication for relieving factors. Current pain is rated as 10/10. Patient was seen by his primary physician a few days after symptoms started and he was instructed on conservative management. Patient states he worsened and contacted the office yesterday looking for a prescription medication. None was provided. Patient states that he took a lot of the [id number] medications for symptoms this morning and started feel somewhat better but then got worse. He was concerned due to a history of adrenal cancer as well as splenectomy. Pt denies LOC, visual changes, neck pain, chest pain, vomiting, abdominal pain, melena, hematochezia, urinary symptoms, numbness, weakness, lymphadenopathy, rash, or other complaints.. PAST MEDICAL HISTORY: See Below, adrenal cancer, splenectomy, PAST SURGICAL HISTORY: See Below, left lower lobe resection, right upper lobe resection. SOCIAL HISTORY: See Below, smoker HOME MEDICATIONS: See Below ALLERGIES: See Below VITALS: See Below PHYSICAL EXAMINATION: GENERAL: Awake, alert, ill-appearing, in no distress HENT: Normocephalic, atraumatic. Oropharynx unremarkable. EYES: Normal conjunctiva. Sclera non-icteric. NECK: Inspection normal. Non-tender. Supple. No nuchal rigidity. FROM. No masses. RESPIRATORY: Clear to auscultation. No wheezes. No rales. Normal respiratory effort. CARDIAC: Tachycardic rate. Normal rhythm. No murmurs. No rubs. Extremities warm and well perfused. Pulses equal. No JVD. GI: Soft, non-distended. No tenderness to palpation. No rebound or guarding. No masses. RECTAL: Deferred. MUSCULOSKELETAL: Atraumatic. Chest examination reveals no tenderness. The back is symmetrical on inspection without obvious abnormality. There is no CVA tenderness to palpation. No joint edema. LOWER EXTREMITIES: Calves are equal size bilaterally and non-tender. No edema. No discoloration. NEURO: Normal sensorium. No sensory or motor deficits noted. SKIN: No rash or jaundice noted. PROCEDURES: none CRITICAL CARE: none OBSERVATION NOTE: none Past Med/Surg History Problem List (Updated 01/09/25 @ 21:02 by Perry Monroy MD) S/P splenectomy (Acute) Tachycardia (Acute) Flu-like symptoms (Acute) Carcinoma, adrenal cortical Erectile dysfunction Lower urinary tract symptoms Hypomagnesemia (Acute) Right lower lobe pneumonia (Acute) Sepsis (Acute) Social History Smoking Status: Current every day smoker Tobacco Type: Cigarettes Cigarettes Per Day: 3; Second Hand Exposure: Yes; Do You Dip or Chew Tobacco: No; Hx Alcohol Use: No Hx Substance Use: Yes Last Used Substance: Days (ago) Preferred Language: Singaporean Communication Ability: Effective Career Manager Required: No Beliefs That Will Affect Care: None Current Living Situation: Other Current Living Situation Comment: Living in [place] with a roommate Feels Safe at Home: Yes Assistive Devices: None Allergies Allergies Allergy/AdvReac Type Severity Reaction Status Date / Time No Known Allergies Allergy Verified 01/09/25 21:27 Home Meds Home Medications Medication Instructions Recorded Confirmed naproxen sodium 220 mg capsule 220 mg PO BID PRN Pain 12/10/24 01/09/25 (Aleve) albuterol sulfate 90 mcg/actuation 2 puff inhalation Q6H PRN 01/09/25 01/09/25 aerosol inhaler Shortness Of Breath Or Wheezing escitalopram oxalate 20 mg tablet 20 mg PO DAILY 01/09/25 01/09/25 gabapentin 600 mg tablet 600 mg PO QID 01/09/25 01/09/25 hydroxyzine HCl 10 mg tablet 10 mg PO TID PRN Anxiety 01/09/25 01/09/25 Previous Rx's Medication Instructions Recorded L.acidop,casei,lactis,rham-B.lact,prerna 1 cap PO DAILY #10 caps 08/08/24 625 mg (10 billion cell) capsule (Advanced Probiotic) guaifenesin 600 mg tablet, 600 mg PO Q12 #14 tabs 08/08/24 extended release 12 hr (Mucinex) tamsulosin 0.4 mg capsule 0.4 mg PO QAM #30 caps 08/08/24 tadalafil 5 mg tablet 5 mg PO DAILY #90 tabs 12/10/24 Results & Data (ED) Vital Signs Vital Signs - 24 hr 01/09/25 20:28 01/09/25 21:59 01/09/25 22:00 Temperature 37.1 C Temperature Source Oral Pulse Rate 136 H 126 H Pulse Rate [Apical] 129 H Pulse Rhythm Regular Pulse Strength Normal Respiratory Rate 20 20 Respiratory Effort / Characteristics Non-Labored Spontaneous Respiratory Depth Normal Respiratory Pattern Regular Blood Pressure 142/75 H Blood Pressure [Right Arm] 137/87 Blood Pressure Mean 97 Blood Pressure Mean [Right Arm] 103 Blood Pressure Position Sitting Blood Pressure Position [Right Arm] Pulse Oximetry 98 94 Oxygen Delivery Method Room Air Room Air Oxygen Flow Rate Sepsis Recent Fever Within 48 Hours Yes Sepsis New/Unexplained Change in Mental Status No Sepsis Action Taken by Nursing No Action Required Oxygen Flow Rate - Titration Pulse Oximetry Post Tiitration 01/09/25 23:00 01/09/25 23:31 01/10/25 00:00 Temperature 38.0 C H Temperature Source Oral Pulse Rate Pulse Rate [Apical] 124 H 123 H 119 H Pulse Rhythm Pulse Strength Respiratory Rate 21 24 21 Respiratory Effort / Characteristics Non-Labored Spontaneous Non-Labored Spontaneous Non-Labored Spontaneous Respiratory Depth Respiratory Pattern Blood Pressure Blood Pressure [Right Arm] 109/82 125/68 98/79 L Blood Pressure Mean Blood Pressure Mean [Right Arm] 91 87 85 Blood Pressure Position Blood Pressure Position [Right Arm] Lying Pulse Oximetry 94 97 93 Oxygen Delivery Method Room Air Room Air Nasal Cannula Oxygen Flow Rate 2 Sepsis Recent Fever Within 48 Hours Sepsis New/Unexplained Change in Mental Status Sepsis Action Taken by Nursing Oxygen Flow Rate - Titration Pulse Oximetry Post Tiitration 01/10/25 00:25 Temperature Temperature Source Pulse Rate Pulse Rate [Apical] Pulse Rhythm Pulse Strength Respiratory Rate Respiratory Effort / Characteristics Respiratory Depth Respiratory Pattern Blood Pressure Blood Pressure [Right Arm] Blood Pressure Mean Blood Pressure Mean [Right Arm] Blood Pressure Position Blood Pressure Position [Right Arm] Pulse Oximetry 90 Oxygen Delivery Method Room Air Nasal Cannula Oxygen Flow Rate 0 Sepsis Recent Fever Within 48 Hours Sepsis New/Unexplained Change in Mental Status Sepsis Action Taken by Nursing Oxygen Flow Rate - Titration 2 Pulse Oximetry Post Tiitration 94 Laboratory Data 01/09/25 21:10 01/09/25 21:10 Lab Results 01/09/25 01/09/25 Range/Units 21:00 21:10 WBC 9.00 (4.8-10.8) K/ul RBC 5.12 (4.70-6.10) M/uL Hgb 15.2 (14.0-18.0) g/dl Hct 44.3 (42.0-52.0) % MCV 86.5 (80.0-100.0) fL MCH 29.7 (25.0-34.0) pg MCHC 34.3 (32.0-36.0) g/dL RDW Std Deviation 52.8 H (36.4-46.3) fL RDW Coeff of Kenneth 17.0 H (11.5-14.5) % Plt Count 412 H (130-400) K/uL MPV 9.5 (9.4-12.4) fL Immature Gran % (Auto) 0.8 % Neut % (Auto) 72.2 % Lymph % (Auto) 16.4 % Starr % (Auto) 10.3 % Eos % (Auto) 0.0 % Baso % (Auto) 0.3 % Neut # (Auto) 6.49 (1.40-6.50) K/uL Lymph # (Auto) 1.48 (1.20-3.40) K/uL Starr # (Auto) 0.93 H (0.11-0.59) K/uL Eos # (Auto) 0.00 (0.00-0.50) K/uL Baso # (Auto) 0.03 (0.00-0.20) K/uL Immature Gran # (Auto) 0.07 (0.01-0.20) K/uL Sodium 136 (136-145) mmol/L Potassium 3.5 (3.5-5.1) mmol/L Chloride 100 (98-107) mmol/L Carbon Dioxide 29 (21-32) mmol/L Anion Gap 7 (3-11) BUN 15 (6-23) mg/dl Creatinine 1.20 (0.6-1.4) mg/dl Est Cr Clr Drug Dosing 75.6 ml/min eGFR 76.48 BUN/Creatinine Ratio 12.5 (10-20) Glucose 119 H (70-99(Fasting)) mg/dl Calcium 9.4 (8.6-10.3) mg/dl Total Bilirubin 0.5 (0.2-1.0) mg/dl AST 20 (13-39) U/L ALT 20 (7-52) U/L Alkaline Phosphatase 110 H (34-104) U/L Total Protein 8.6 H (6.0-8.3) gm/dl Albumin 4.1 (3.4-5.0) gm/dl Globulin 4.5 H (2.5-4.0) gm/dl Albumin/Globulin Ratio 0.9 (0.9-2) Procalcitonin 0.47 (0-0.5) ng/ml Adenovirus (PCR) Not Detected (NotDetected) B. pertussis DNA (PCR) Not Detected (NotDetected) B.parapertussis DNA PCR Not Detected (NotDetected) C. pneumoniae DNA (PCR) Not Detected (NotDetected) Coronavirus OC43 (PCR) Not Detected (NotDetected) Coronavirus HKU1 (PCR) Not Detected (NotDetected) Coronavirus 229E (PCR) Not Detected (NotDetected) SARS-CoV-2 (PCR) Not Detected (NotDetected) Coronavirus NL63 (PCR) Not Detected (NotDetected) Human Metapneumovir PCR Not Detected (NotDetected) Influenza Type A (PCR) Not Detected (NotDetected) Influenza Type B (PCR) Not Detected (NotDetected) M. pneumoniae (PCR) Not Detected (NotDetected) Parainfluenza 1 (PCR) Not Detected (NotDetected) Parainfluenza 2 (PCR) Not Detected (NotDetected) Parainfluenza 3 (PCR) Not Detected (NotDetected) Parainfluenza 4 (PCR) Not Detected (NotDetected) RSV (PCR) DETECTED A (NotDetected) Entero/Rhino (PCR) Not Detected (NotDetected) Administered Medications Doxycycline Hyclate 100 mg/ (Dextrose) 100 mls @ 50 mls/hr IV NOW STA Stop: 01/10/25 01:20 Last Admin: 01/10/25 00:00 Dose: 50 mls/hr Documented By: JENNY Sodium Chloride (Nss) 1,000 mls @ 999 mls/hr IV .Q1H1M ONE Stop: 01/10/25 01:18 Last Admin: 01/10/25 00:22 Dose: 999 mls/hr Documented By: JENNY Discontinued Medications Acetaminophen (Acetaminophen 500 Mg Tab) 1,000 mg PO NOW STA Stop: 01/09/25 21:23 Last Admin: 01/09/25 21:27 Dose: 1,000 mg Documented By: JEIMY Al Hydrox/Mg Hydrox/Simethicone (Aluminum/Magnesium Susp 30 Ml Udc) 30 ml PO NOW STA Stop: 01/09/25 22:52 Last Admin: 01/09/25 23:14 Dose: 30 ml Documented By: JENNY Albuterol (Albut/Ipratrop 3mg/0.5mg Neb 3 Ml Vial) 3 ml NEB NOW STA; Protocol Stop: 01/09/25 20:55 Last Admin: 01/09/25 21:28 Dose: 3 ml Documented By: JEIMY Hydrocodone Bit/Homatropine Methylb (Hydrocodone/Homatropine Syrup 5mg/1.5mg 5ml Udp) 5 ml PO NOW STA Stop: 01/09/25 20:55 Last Admin: 01/09/25 21:28 Dose: 5 ml Documented By: JEIMY Hydromorphone HCl (Hydromorphone Inj 0.5 Mg/0.5 Ml Syr) 0.5 mg IV NOW STA Stop: 01/09/25 23:47 Last Admin: 01/10/25 00:00 Dose: 0.5 mg Documented By: JENNY Sodium Chloride (Nss) 1,000 mls @ 999 mls/hr IV .Q1H1M ONE Stop: 01/09/25 21:54 Last Infusion: 01/09/25 23:03 Dose: Infused Documented By: Admin: 01/09/25 21:28 Dose: 999 mls/hr Documented By: JEIMY Ceftriaxone Sodium (Rocephin) 2,000 mg in 50 mls @ 100 mls/hr IV NOW STA Stop: 01/09/25 21:50 Last Infusion: 01/09/25 23:20 Dose: Infused Documented By: Admin: 01/09/25 22:47 Dose: 100 mls/hr Documented By: JEIMY Famotidine (Pepcid 20mg Iv Push) 20 mg in 5 mls @ 2.5 mls/min IV NOW STA Stop: 01/09/25 22:52 Last Admin: 01/09/25 23:14 Dose: 2.5 mls/min Documented By: JENNY Ketorolac Tromethamine (Ketorolac Tromethamine 15 Mg/Ml Vial) 10 mg IV NOW ONE Stop: 01/09/25 23:22 Last Admin: 01/09/25 23:29 Dose: 10 mg Documented By: CDM Imaging Data Radiologist's Impression: Chest X-Ray 01/09/25 20:54 Exam(s): XR CXR 1 VIEW EXAM: XR Chest, 1 View CLINICAL HISTORY: cough, flu like symptoms. hx of LLL, RUL resection. TECHNIQUE: Frontal view of the chest. COMPARISON: 08/06/2024. FINDINGS: Lungs: Recurrent right lower lobe consolidation. Patchy infiltrates the left lung base. Postsurgical changes left lung base. No CHF. Pleural space: No pleural effusion. No pneumothorax. Heart: Unremarkable. No cardiomegaly. Mediastinum: Unremarkable. Normal mediastinal contour. Bones/joints: Unremarkable. No acute fracture. IMPRESSION: Recurrent right lower lobe pneumonia. Patchy infiltrates the left lung base. Electronically signed by: Mack Morrison M.D. 01/09/25 23:07 PM Discharge Plan Visit Data Chief Complaint: Flu Like Symptoms Stated Complaint: FLU LIKE SX ED Provider: Perry Monroy Discharge Problem: Flu-like symptoms, Tachycardia, S/P splenectomy Forms Stand Alone Forms: [facility] Prescriptions Prescriptions: No Action naproxen sodium [Aleve] 220 mg capsule 220 mg PO BID PRN (Reason: Pain) tadalafil 5 mg tablet 5 mg PO DAILY Qty: 90 3RF tamsulosin 0.4 mg Capsule 0.4 mg PO QAM Qty: 30 0RF guaifenesin [Mucinex] 600 mg Tablet Extended Release 12hr 600 mg PO Q12 Qty: 14 0RF Rx Instructions: OTC Advanced Probiotic 625 mg (10 billion cell) Capsule 1 cap PO DAILY Qty: 10 0RF gabapentin 600 mg tablet 600 mg PO QID albuterol sulfate 90 mcg/actuation HFA aerosol inhaler 2 puff INHALATION Q6H PRN (Reason: Shortness Of Breath Or Wheezing) hydroxyzine HCl 10 mg tablet 10 mg PO TID PRN (Reason: Anxiety) escitalopram oxalate 20 mg tablet 20 mg PO DAILY Referrals Referrals: Salena Akins [Primary Care Provider] -
[2025-01-09] MEDS: ACETAMINOPHEN 500 MG TAB PO STA (21:27)
[2025-01-09] MEDS: ALBUT/IPRATROP 3MG/0.5MG NEB 3 ML VIAL NEB STA (21:28)
[2025-01-09] MEDS: SODIUM CHLORIDE 0.9% 1,000 ML IV ONE (21:28)
[2025-01-09] MEDS: HYDROcodone/HOMATROPINE SYRUP 5MG/1.5MG 5ML UDP PO STA (21:28)
[2025-01-09 21:32] LABS: Hematocrit (blood only) 44.3 % (42.0-52.0); Hemoglobin 15.2 g/dl (14.0-18.0); Mean Corpuscular Hemoglobin 29.7 pg (25.0-34.0); Mean Corpuscular Hgb Conc 34.3 g/dL (32.0-36.0); Mean Corpuscular Volume 86.5 fL (80.0-100.0); Mean Platelet Volume 9.5 fL (9.4-12.4); Platelet Count 412 K/uL (130-400); RDW Standard Deviation 52.8 fL (36.4-46.3); Red Blood Count 5.12 M/uL (4.70-6.10)
[2025-01-09 21:50] LABS: Albumin Globulin Ratio 0.9 (0.9-2); Albumin Level 4.1 gm/dl (3.4-5.0); BUN Creatinine Ratio 12.5 (10-20); Bilirubin,Total 0.5 mg/dl (0.2-1.0); Calcium 9.4 mg/dl (8.6-10.3); Creatinine Clr Calc Pharmacy 75.6 ml/min; Globulin 4.5 gm/dl (2.5-4.0); Potassium 3.5 mmol/L (3.5-5.1); Total Protein 8.6 gm/dl (6.0-8.3)
[2025-01-09 22:36] LABS: Basophils # (auto) 0.03 K/uL (0.00-0.20); Basophils % (auto) 0.3 %; Immature Granulocytes # (auto) 0.07 K/uL (0.01-0.20); Immature Granulocytes % (auto) 0.8 %; Lymphocytes # (auto) 1.48 K/uL (1.20-3.40); Lymphocytes % (auto) 16.4 %; Monocytes # (auto) 0.93 K/uL (0.11-0.59); Monocytes % (auto) 10.3 %; Neutrophils # (auto) 6.49 K/uL (1.40-6.50); Neutrophils % (auto) 72.2 %
[2025-01-09 22:46] LABS: Adenovirus PCR Not Detected (NotDetected); Bordetella parapertussis PCR Not Detected (NotDetected); Bordetella pertussis PCR Not Detected (NotDetected); Chlamydia pneumoniae PCR Not Detected (NotDetected); Coronavirus 229E PCR Not Detected (NotDetected); Coronavirus CoV-2 (COVID19)PCR Not Detected (NotDetected); Coronavirus HKU1 PCR Not Detected (NotDetected); Coronavirus NL63 PCR Not Detected (NotDetected); Coronavirus OC43PCR Not Detected (NotDetected); Human Metapneumovirus PCR Not Detected (NotDetected); Influenza A PCR Not Detected (NotDetected); Influenza B PCR Not Detected (NotDetected); Mycoplasma pneumoniae PCR Not Detected (NotDetected); Parainfluenza Virus 1 PCR Not Detected (NotDetected); Parainfluenza Virus 2 PCR Not Detected (NotDetected); Parainfluenza Virus 3 PCR Not Detected (NotDetected); Parainfluenza Virus 4 PCR Not Detected (NotDetected); Respiratory Syncytial VirusPCR DETECTED (NotDetected); Rhinovirus/Enterovirus PCR Not Detected (NotDetected)
[2025-01-09] MEDS: cefTRIAXone SODIUM 2,000 MG/50 ML BAG IV STA (22:47)
--- NOTE | 2025-01-09 23:07 | XRay Report ---
Exam(s): XR CXR 1 VIEW EXAM: XR Chest, 1 View CLINICAL HISTORY: cough, flu like symptoms. hx of LLL, RUL resection. TECHNIQUE: Frontal view of the chest. COMPARISON: 08/06/2024. FINDINGS: Lungs: Recurrent right lower lobe consolidation. Patchy infiltrates the left lung base. Postsurgical changes left lung base. No CHF. Pleural space: No pleural effusion. No pneumothorax. Heart: Unremarkable. No cardiomegaly. Mediastinum: Unremarkable. Normal mediastinal contour. Bones/joints: Unremarkable. No acute fracture. IMPRESSION: Recurrent right lower lobe pneumonia. Patchy infiltrates the left lung base. Electronically signed by: Mack Morrison M.D. 01/09/25 23:07 PM
[2025-01-09] MEDS: FAMOTIDINE 20MG IV PUSH 20 MG/5 ML SYR IV STA (23:14)
[2025-01-09] MEDS: ALUMINUM/MAGNESIUM SUSP 30 ML UDC PO STA (23:14)
[2025-01-09] MEDS: KETOROLAC TROMETHAMINE 15 MG/ML VIAL IV ONE (23:29)
--- NOTE | 2025-01-09 23:51 | History & Physical Report ---
Date of Service January 09, 2025 Assessment & Plan (1) Sepsis: (2) RSV (acute bronchiolitis due to respiratory syncytial virus): (3) Pneumonia: (4) Abdominal pain: (5) HIV (human immunodeficiency virus infection): (6) COPD (chronic obstructive pulmonary disease): (7) Anxiety: Plan 44-year-old male with history of metastatic adrenal cancer status post lobectomy, status post splenectomy, fairly new diagnosis of HIV, COPD presenting with home with several days of not feeling well. Patient with sepsis present on admission (fever, tachycardia). Respiratory bio fire panel positive for RSV. Chest x-ray suggestive of multifocal pneumonia. Patient also with significant complaints of abdominal pain. #SepsisSIRS 2 out of 4 (Tmax = 38, heart rate = 108, likely pulmonary source, also consider intra-abdominal). Patient has received 2 L IV bolus of normal saline. Blood pressure has been borderline low. procalcitonin = 0.47. No anion gap on chemistry panel Admit to medical with telemetry Maintain isolation precautions Follow blood cultures sent from the ER Check urinalysis Check CD4 count Check LDHpatient is not overly hypoxic, low concern for PCP pneumonia Check sputum culture Check CT chest noncontrast Check CT abdomen/pelvis with IV contrast Continue IV fluidsLR at 100 mL/h x 2 L Tylenol as needed Ceftriaxone 1 g IV daily Doxycycline 100 mg IV twice daily #RSVnoted on respiratory bio fire panel. Patient endorses worsening cough over the last several days. Maintain isolation precautions Supportive care Tylenol as needed, Zofran as needed, Mucinex Flutter valve 4 times daily #Pneumonia evidence of multifocal pneumonia noted on chest x-ray Check sputum culture Check LDH Check CT chest noncontrast Continue supplemental oxygen as needed Continue ceftriaxone and doxycycline Tylenol, Zofran, Mucinex #Abdominal painpatient reporting significant abdominal cramping at this time. LFTs are within normal limits Check CT abdomen Morphine as needed for pain control #HIVpatient initially did not mention his fairly new diagnosis of HIV. He reports that he has not told anyone that he has HIV since being diagnosed approximately 1 month ago. He does follow with infectious disease. Reports that his last CD4 count was "good ", is unsure of the number but thinks it may have been 5000 Check CD4 count now Continue home Biktarvy. Patient does have several days worth of medication in his bag. May need to bring additional medication from home depending on his length of stay #COPDpatient reports that he was diagnosed with early stages of emphysema several years ago. He is diffusely wheezing in the setting of RSV infection, pneumonia. Borderline low oxygen saturations in the ER now improved with supplemental O2 Continue supplemental oxygen as needed to maintain saturation with goal of 92% DuoNebs every 4 hours scheduled Albuterol neb every 2 hours as needed #Anxiety Continue hydroxyzine Continue escitalopram #BPH Continue Flomax Patient reports that he has a cystoscopy scheduled for Sunday for workup of urinary issues Bladder scan with straight cath as needed #Electrolyte abnormalitiespatient with low magnesium as well as phosphorus levels Magnesium 2 g IV ordered Potassium phosphorus 12 mmol IV ordered History of Present Illness Chief Complaint: pneumonia Primary Care Provider: Salena Akins Gerardo Borden is a 44yo male with history of 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 Status post splenectomy. Patient with recent HIV diagnosis on . Patient reports starting to feel ill on January 04 with some congestion, cough, sore throat. He was seen by his PCP on 01/07, Told that his symptoms were likely viral in nature. No antibiotics administered. Patient reports that his symptoms have progressively worsened since 01/07. Patient reports ongoing cough productive for dark yellow sputum, occasionally pink in color as well, as well as pain in his chest and back that occur during the cough, worsening reflux symptoms, nausea. Also with likely fever - reports he has two new non-touch thermometers at home, neither of which work very well. Today prior to arrival he did develop severe lower abdominal cramping with some abdominal distention followed by a large non-bloody BM. He did have some blood on the toilet paper after wiping earlier in the week which occurred after straining to have a BM but has not experienced blood since. In the ER patient is febrile, tachycardic, borderline low BP, saturations of 90- 91% on room air during my encounter - placed on 2L NC with improvement ER Course: Tylenol 1gm NSS x 2L Hydrocodone 5mL Albuterol neb Ceftriaone 2gm Pepcid 20mg Maalox/Simethicone Toradol 10mg IV Doxycycline 100mg IV Allergies Allergy/AdvReac Type Severity Reaction Status Date / Time No Known Allergies Allergy Verified 01/09/25 21:27 Home Medications Medication Instructions Recorded Confirmed Type L.acidop,casei,lactis,rham-B.lact,prerna 1 cap PO DAILY #10 caps 08/08/24 01/09/25 Rx 625 mg (10 billion cell) capsule (Advanced Probiotic) guaifenesin 600 mg tablet, 600 mg PO Q12 #14 tabs 08/08/24 01/09/25 Rx extended release 12 hr (Mucinex) tamsulosin 0.4 mg capsule 0.4 mg PO QAM #30 caps 08/08/24 01/09/25 Rx naproxen sodium 220 mg capsule 220 mg PO BID PRN Pain 12/10/24 01/09/25 History (Aleve) tadalafil 5 mg tablet 5 mg PO DAILY #90 tabs 12/10/24 01/09/25 Rx albuterol sulfate 90 mcg/actuation 2 puff inhalation Q6H PRN 01/09/25 01/09/25 History aerosol inhaler Shortness Of Breath Or Wheezing escitalopram oxalate 20 mg tablet 20 mg PO DAILY 01/09/25 01/09/25 History gabapentin 600 mg tablet 600 mg PO QID 01/09/25 01/09/25 History hydroxyzine HCl 10 mg tablet 10 mg PO TID PRN Anxiety 01/09/25 01/09/25 History Past Med/Surg History Problem List (Updated 01/10/25 @ 03:18 by Anastasiya Humphreys DO) Abdominal pain Pneumonia RSV (acute bronchiolitis due to respiratory syncytial virus) Tachycardia (Acute) Flu-like symptoms (Acute) Carcinoma, adrenal cortical Erectile dysfunction Lower urinary tract symptoms Hypomagnesemia (Acute) Right lower lobe pneumonia (Acute) Sepsis (Acute) Medical History (Updated 01/10/25 @ 03:18 by Anastasiya Humphreys DO) Anxiety COPD (chronic obstructive pulmonary disease) HIV (human immunodeficiency virus infection) Adrenal malignant neoplasm Surgical History (Updated 01/10/25 @ 03:15 by Anastasiya Humphreys DO) S/P splenectomy Social History Smoking Status: Current every day smoker Tobacco Type: Cigarettes Cigarettes Per Day: 3; Second Hand Exposure: Yes; Do You Dip or Chew Tobacco: No; Hx Alcohol Use: No Hx Substance Use: Yes Last Used Substance: Days (ago) Preferred Language: Beninese Communication Ability: Effective Trim And Burr Operator Required: No Beliefs That Will Affect Care: None Current Living Situation: Other Current Living Situation Comment: [facility] [employer] [place] [facility] Feels Safe at Home: Yes Assistive Devices: None Review of Systems Review of Systems: All systems reviewed & are unremarkable except as noted in HPI & below Physical Exam Physical Exam: General: patient ill in appearance, AA&O x 4 Skin: warm, dry, intact, no rashes or lesions HEENT: NC/AT, PERRL, EOMI, anicteric sclera, conjunctiva without injection, external ear normal to inspection and nontender, nares patent, dry mucus membranes, dentition intact, no oropharyngeal lesions, neck supple, trachea midline, no LAD, no thyromegaly, no JVD Heart: +S1/S2, regular, tachycardic, no m/r/g Lungs: equal air entry bilaterally, diffuse end-expiratory wheezing in bilateral lung leon, crackles present in right base Abd: +BS, soft, NT/ND, no masses/organomegaly/ascites Ext: warm, 2+ pulses in UE/LE bilaterally, no clubbing/cyanosis or edema Neuro: nonfocal, patient AA&O x 4, speech intact, no facial droop, moving all extremities on command with equal strength 5/5 Results & Data Results & Data Vital Signs (Past 12 Hours) Vital Signs Temp Pulse Pulse Resp BP BP Pulse Ox 01/09/25 23:31 38.0 C H 123 H 24 125/68 97 01/09/25 23:00 124 H 21 109/82 94 01/09/25 22:00 129 H 20 137/87 94 01/09/25 21:59 126 H 01/09/25 20:28 37.1 C 136 H 20 142/75 H 98 O2 Del Method 01/09/25 23:31 Room Air 01/09/25 23:00 Room Air 01/09/25 22:00 Room Air 01/09/25 21:59 01/09/25 20:28 Room Air Laboratory Results Laboratory Results WBC 10.73 K/ul (4.8-10.8) 01/10/25 02:24 RBC 4.52 M/uL (4.70-6.10) L 01/10/25 02:24 Hgb 13.5 g/dl (14.0-18.0) L 01/10/25 02:24 Hct 39.4 % (42.0-52.0) L 01/10/25 02:24 MCV 87.2 fL (80.0-100.0) 01/10/25 02:24 MCH 29.9 pg (25.0-34.0) 01/10/25 02:24 MCHC 34.3 g/dL (32.0-36.0) 01/10/25 02:24 RDW Std Deviation 52.9 fL (36.4-46.3) H 01/10/25 02:24 RDW Coeff of Kenneth 16.6 % (11.5-14.5) H 01/10/25 02:24 Plt Count 373 K/uL (130-400) 01/10/25 02:24 MPV 9.7 fL (9.4-12.4) 01/10/25 02:24 Immature Gran % (Auto) 0.8 % 01/09/25 21:10 Neut % (Auto) 72.2 % 01/09/25 21:10 Lymph % (Auto) 16.4 % 01/09/25 21:10 [place] % (Auto) 10.3 % 01/09/25 21:10 Eos % (Auto) 0.0 % 01/09/25 21:10 Baso % (Auto) 0.3 % 01/09/25 21:10 Neut # (Auto) 6.49 K/uL (1.40-6.50) 01/09/25 21:10 Lymph # (Auto) 1.48 K/uL (1.20-3.40) 01/09/25 21:10 [place] # (Auto) 0.93 K/uL (0.11-0.59) H 01/09/25 21:10 Eos # (Auto) 0.00 K/uL (0.00-0.50) 01/09/25 21:10 Baso # (Auto) 0.03 K/uL (0.00-0.20) 01/09/25 21:10 Immature Gran # (Auto) 0.07 K/uL (0.01-0.20) 01/09/25 21:10 Sodium 138 mmol/L (136-145) 01/10/25 02:24 Potassium 3.7 mmol/L (3.5-5.1) 01/10/25 02:24 Chloride 107 mmol/L (98-107) 01/10/25 02:24 Carbon Dioxide 25 mmol/L (21-32) 01/10/25 02:24 Anion Gap 6 (3-11) 01/10/25 02:24 BUN 15 mg/dl (6-23) 01/10/25 02:24 Creatinine 1.06 mg/dl (0.6-1.4) 01/10/25 02:24 Est Cr Clr Drug Dosing 85.5 ml/min 01/10/25 02:24 eGFR 88.75 01/10/25 02:24 BUN/Creatinine Ratio 14.2 (10-20) 01/10/25 02:24 Glucose 128 mg/dl (70-99(Fasting)) H 01/10/25 02:24 Calcium 8.7 mg/dl (8.6-10.3) 01/10/25 02:24 Phosphorus 2.0 mg/dl (2.5-4.9) L 01/10/25 02:24 Magnesium 1.5 mg/dl (1.7-2.4) L 01/10/25 02:24 Total Bilirubin 0.5 mg/dl (0.2-1.0) 01/09/25 21:10 AST 20 U/L (13-39) 01/09/25 21:10 ALT 20 U/L (7-52) 01/09/25 21:10 Alkaline Phosphatase 110 U/L (34-104) H 01/09/25 21:10 Lactate Dehydrogenase 186 U/L (86-244) 01/10/25 02:24 Total Protein 8.6 gm/dl (6.0-8.3) H 01/09/25 21:10 Albumin 4.1 gm/dl (3.4-5.0) 01/09/25 21:10 Globulin 4.5 gm/dl (2.5-4.0) H 01/09/25 21:10 Albumin/Globulin Ratio 0.9 (0.9-2) 01/09/25 21:10 Procalcitonin 0.47 ng/ml (0-0.5) 01/09/25 21:10 Adenovirus (PCR) Not Detected (NotDetected) 01/09/25 21:00 B. pertussis DNA (PCR) Not Detected (NotDetected) 01/09/25 21:00 B.parapertussis DNA PCR Not Detected (NotDetected) 01/09/25 21:00 C. pneumoniae DNA (PCR) Not Detected (NotDetected) 01/09/25 21:00 Coronavirus OC43 (PCR) Not Detected (NotDetected) 01/09/25 21:00 Coronavirus HKU1 (PCR) Not Detected (NotDetected) 01/09/25 21:00 Coronavirus 229E (PCR) Not Detected (NotDetected) 01/09/25 21:00 SARS-CoV-2 (PCR) Not Detected (NotDetected) 01/09/25 21:00 Coronavirus NL63 (PCR) Not Detected (NotDetected) 01/09/25 21:00 Human Metapneumovir PCR Not Detected (NotDetected) 01/09/25 21:00 Influenza Type A (PCR) Not Detected (NotDetected) 01/09/25 21:00 Influenza Type B (PCR) Not Detected (NotDetected) 01/09/25 21:00 M. pneumoniae (PCR) Not Detected (NotDetected) 01/09/25 21:00 Parainfluenza 1 (PCR) Not Detected (NotDetected) 01/09/25 21:00 Parainfluenza 2 (PCR) Not Detected (NotDetected) 01/09/25 21:00 Parainfluenza 3 (PCR) Not Detected (NotDetected) 01/09/25 21:00 Parainfluenza 4 (PCR) Not Detected (NotDetected) 01/09/25 21:00 RSV (PCR) DETECTED (NotDetected) A 01/09/25 21:00 Entero/Rhino (PCR) Not Detected (NotDetected) 01/09/25 21:00 Impressions Chest X-Ray 01/09/25 20:54 Exam(s): XR CXR 1 VIEW EXAM: XR Chest, 1 View CLINICAL HISTORY: cough, flu like symptoms. hx of LLL, RUL resection. TECHNIQUE: Frontal view of the chest. COMPARISON: 08/06/2024. FINDINGS: Lungs: Recurrent right lower lobe consolidation. Patchy infiltrates the left lung base. Postsurgical changes left lung base. No CHF. Pleural space: No pleural effusion. No pneumothorax. Heart: Unremarkable. No cardiomegaly. Mediastinum: Unremarkable. Normal mediastinal contour. Bones/joints: Unremarkable. No acute fracture. IMPRESSION: Recurrent right lower lobe pneumonia. Patchy infiltrates the left lung base. Electronically signed by: Mack Morrison M.D. 01/09/25 23:07 PM PG Care Time/CCT Total # of Minutes Spent Total Time Spent with Patient: Total time spent is greater than 50% in coordination of care (as documented) at patient's floor/unit and/or counseling patient: Coding Level of Care Code 03955 INT INP/OBS CARE 3/75MIN Diagnoses Sepsis A41.9 Sepsis acute organ dysfunction status: without acute organ dysfunction Sepsis type: sepsis due to unspecified organism RSV (acute bronchiolitis due to respiratory syncytial virus) J21.0 Pneumonia J18.9 Abdominal pain R10.9 HIV (human immunodeficiency virus infection) Z21 COPD (chronic obstructive pulmonary disease) J44.9 Anxiety F41.9 (1) Sepsis Sepsis acute organ dysfunction status: without acute organ dysfunction Sepsis type: sepsis due to unspecified organism Qualified Code(s): A41.9 - Sepsis, unspecified organism
--- OUTSIDE RECORDS SUMMARY | 2025-01-09 23:59 | External Medical Summary | Summary of Care ---
Author Name Unknown Organization [facility] Address [address] [place] [address] Phone [phone] Care Team Providers Care Chemistry Quality Control Analyst Name Role Phone Unavailable Primary Care Provider Unavailabl e Encounter Details Date Type Department Care Team (Late st Contact Info) Description 12/10/2024 Telephone Infectious Disease, [facility] [address], [place] [phone] Magda Nino MD [address], [place] [phone] Allergies No known active allergiesdocumented as of this encounter (statuses as of 12/19/2024) Medications Naproxen 500 MG Oral Tablet (Naprosyn) TAKE 1 TABLET BY MOUTH 2 TIMES DAILY NEEDED FOR PAIN. 03/27/2021 Active Albuterol Sulfate HFA 108 (90 Base) MCG/ACT Inhalation Aerosol Solution INHALE 2 PUFFS EVERY 6 HOURS DIRECTED 03/24/2021 Active Apricot Flavor Liquid Use as directed. Active Escitalopram Oxalate 10 MG Oral Tablet (Lexapro)Indica tions:Anxiety Take 1 Tab by mouth daily. 30 Tab 5 05/19/2021 Active hydrOXYzine HCl 25 MG Oral TabletIndicatio ns:Anxiety TAKE 1 TABLET BY MOUTH EVERY 6 HOURS NEEDED FOR ANXIETY 40 Tablet 09/18/2022 Active Gabapentin 600 MG Oral Tablet (Neurontin)Stacey cations:Neuropa thic pain TAKE 1 TABLET BY MOUTH FOUR TIMES DAILY 360 Tablet 09/18/2022 Active documented as of this encounter (statuses as of 12/19/2024) Active Problems Problem Noted Date Diagnosed Date Anxiety 05/18/2021 Neuropathic pain 05/18/2021 History of hyperlipidemia 05/18/2021 Dyslipidemia 05/18/2021 Adrenal cortical adenocarcinoma of left adrenal gland 03/23/2021 Secondary malignant neoplasm of right lower lobe of lung 12/18/2019 Primary hyperparathyroidism 12/18/2019 Neoplasm of upper lobe of left lung 12/18/2019 documented as of this encounter (statuses as of 12/19/2024) Resolved Problems Problem Noted Date Diagnosed Date Resolved Date DDD (degenerative disc disease), cervical 03/23/2021 05/18/2021 Cigarette smoker 03/23/2021 05/18/2021 Multiple pulmonary nodules 12/18/2019 0 05/18/2021 Overview (05/18/2021): see Oct [address] Gaspar Malignant neoplasm of adrenal cortex 12/18/2019 05/18/2021 Hypertension 12/18/2019 05/18/2021 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 12/18/2019 05/18/2021 Generalized anxiety disorder 12/18/2019 05/18/2021 documented as of this encounter (statuses as of 12/19/2024) Immunizations Name Administration Dates Next Due Haemophilius B (HIB), unspecified 10/24/2017 Meningococcal MCV4P Conjugat e Vaccine (Menactra) 10/24/2017 Pneumococcal Conjugate Vacc, 13 Valent (Prevnar) 07/05/2017 Seasonal Influenza Vac., MDV , IM, 0.5 mL (Fluzone) 07/21/2020,07/09/2019,08/21/2018,07/05,06/25/2015 TDAP (age 10 and older)(Boostrix) 03/23/2021 documented as of this encounter Social History Tobacco Use Types Packs/Day Years Used Date Smoking Tobacco: Former Cigarettes 0.5 15 Smokeless Tobacco: Never Alcohol Use Standard Drinks/Week Comments Yes 0 (1 standard drink = 0.6 oz pur e alcohol) Holidays Utilities Answer Date Recorded Do you have trouble paying y our heating, water, or electric bill? (Adult - for ages 18 years and over) Not on file 03/18/2024 Is your family able to pay t he heat, water, or electric bill? (Household - for ages 0-17 years) Not on file 03/18/2024 Does your family have access to good internet? (Household - for ages 0-17 years) Not on file 03/18/2024 Social Connections Answer Date Recorded How often do you feel lonely or isolated from those around you? (Adult - for ages 18 years and over) Not on file 03/18/2024 Sex and Gender Information Value Date Recorded Sex Assigned at Not on file Legal Sex Male 12:01 PM EDT Gender Identity Not on file Sexual Orientation Not on file documented as of this encounter Miscellaneous Notes * Telephone Encounter - Haleigh Gonzalez OSA - 12/10/2024 12:38 PM EDT Received a call back from Gerardo. I left Gerardo know that we got a referral to get him scheduled in ID. Patient said that he is already seeing a ID provider for his HIV at [facility] in [place] for his HIV. He also said that he has a Wheelman as well. I left him know that I will document that and he thanked me for calling him. * Telephone Encounter - Haleigh Gonzalez OSA - 12/10/2024 12:29 PM EDT Called patient to schedule a New appointment due to a referral placed on 11/24/24. No answer, left VM documented in this encounter Plan of Treatment Health Maintenance Due Date Last Done Comments Depression Screening 1992 HIV Screening 1995 Hepatitis C Screening 1998 Hepatitis B Vaccine (1 of 3 - 19+ 3-dose series) 1999 COVID-19 Vaccine ( - 2023- season) 2024 Influenza Vaccine (FLU shot) (#1) 2024 07/21/2020, 07/09/2019, 08/21/2018, Additional history exists Lipid Panel 05/20/2026 05/20/2021 DTap/Tdap Vaccines (2 - Td or Tdap) 03/23/2031 03/23/2021 Pneumococcal Vaccine: Pediatrics (0 to 5 Years) and At-Risk Patients (6 to 18 Years and 19+ Years) Aged Out 07/05/2017 No longer eligib le based on patient's age to complete this topic MENINGOCOCCAL (MENACTRA/MENVEO) Aged Out 10/24/2017 No longer eligible based on patient's age to complete this topic HPV (Gardasil) Vaccine Aged Out No lo nger eligible based on patient's age to complete this topic Meningitis B Vaccine (Bexsero/Trumemba) Aged Out No longer eligible based on patient's age to complete this topic documented as of this encounter Medical Devices Not on filedocumented as of this encounter
[2025-01-10] MEDS: DOXYCYCLINE HYCLATE 100 MG in DEXTROSE 5% MINI-B 100 ML IV STA
[2025-01-10] MEDS: SODIUM CHLORIDE 0.9% 1,000 ML IV ONE (00:22)
[2025-01-10] MEDS ORDERED: ACETAMINOPHEN 325 MG TAB PO PRN (02:14)
[2025-01-10] MEDS ORDERED: ALBUTEROL 0.5% NEB SOLN 2.5 MG/0.5 ML VIAL NEB PRN (02:14)
[2025-01-10] MEDS ORDERED: DOCUSATE SODIUM 100 MG CAP PO PRN (02:14)
[2025-01-10] MEDS ORDERED: ONDANSETRON INJ 2 MG/ML 2 ML VIAL IV PRN (02:14)
[2025-01-10] MEDS ORDERED: ALBUTEROL HFA 8 GM INHALER INH PRN (02:14)
[2025-01-10] MEDS: SODIUM CHLORIDE 0.9% 1,000 ML IV SCH (02:19)
[2025-01-10] MEDS: LACTATED RINGER'S 1,000 ML IV SCH (02:26)
[2025-01-10 02:46] LABS: Hematocrit (blood only) 39.4 % (42.0-52.0); Hemoglobin 13.5 g/dl (14.0-18.0); Mean Corpuscular Hemoglobin 29.9 pg (25.0-34.0); Mean Corpuscular Hgb Conc 34.3 g/dL (32.0-36.0); Mean Corpuscular Volume 87.2 fL (80.0-100.0); Mean Platelet Volume 9.7 fL (9.4-12.4); Platelet Count 373 K/uL (130-400); RDW Coefficient of Variation 16.6 % (11.5-14.5); RDW Standard Deviation 52.9 fL (36.4-46.3); Red Blood Count 4.52 M/uL (4.70-6.10); White Blood Count 10.73 K/ul (4.8-10.8)
[2025-01-10 02:57] LABS: Magnesium 1.5 mg/dl (1.7-2.4)
[2025-01-10 02:58] LABS: BUN Creatinine Ratio 14.2 (10-20); Calcium 8.7 mg/dl (8.6-10.3); Creatinine Clr Calc Pharmacy 85.5 ml/min; Potassium 3.7 mmol/L (3.5-5.1)
[2025-01-10] MEDS: HYDROmorphone INJ 0.5 MG/0.5 ML SYR IV STA ×2 (03:11)
[2025-01-10] MEDS ORDERED: POTASSIUM PHOS 3 MMOL/1 ML INFUSION IV STA (03:21)
[2025-01-10] MEDS: ALBUT/IPRATROP 3MG/0.5MG NEB 3 ML VIAL NEB SCH (03:22)
[2025-01-10] MEDS: MAGNESIUM SULFATE / D5W 1 GM/100 ML BAG IV SCH (03:56)
[2025-01-10] MEDS: POTASSIUM PHOSPHATE 9 MMOL in SODIUM CHLORIDE 0.9% 250 ML IV ONE (03:57)
[2025-01-10 05:00] LABS: Appearance Urine Clear (Clear); Bacteria Urine Automated None Seen (None Seen); Bilirubin Urine Negative (Negative); Blood Urine Trace (Negative); Cast Urine Automated 0-2 /lpf (0-2); Color Urine Yellow; Epithelial Cell Urine Auto 0-2 /hpf (0-2); Glucose Urine UA Negative (Negative); Ketones Urine Negative (Negative); Leukocyte Esterase Urine Negative (Negative); Nitrite Urine Negative (Negative); Protein Urine Negative (Negative); Specific Gravity Urine 1.007 (1.000-1.030); Urobilinogen Urine Negative (Negative); WBC Urine Automated 0-5 /hpf (0-5); pH Urine 6.5 (4.5-7.5)
[2025-01-10] MEDS: OPTIRAY 320 100ml IV ONE (06:33)
--- NOTE | 2025-01-10 07:05 | CT Scan Report ---
EXAM: CT abdomen pelvis wo/w con CLINICAL HISTORY: abdominal pain TECHNIQUE: Contiguous axial images were obtained from the level of the diaphragm to the pubic symphysis with intravenous contrast. Coronal and sagittal reconstructions were likewise performed and indicated to increase the sensitivity for detecting clinically relevant pathology. If IV contrast material had not been administered, the likelihood of detecting abnormalities relevant to the patient's condition would have been substantially decreased. CT scan was performed according to ALARA (as low as reasonable achievable). COMPARISON: 09:36:59 DIRECTOR OF EXHIBIT DEVELOPMENT FINDINGS: Multifocal consolidation with adjacent interlobular septal thickening are noted involving bilateral lower lobes and lingula. Minimal synpneumonic bilateral pleural effusion. Mild pericardial effusion. The liver is enlarged in size and attenuation. No focal liver lesions are seen. There is no intra or extrahepatic biliary ductal dilatation. Hepatic vasculature is patent. The gallbladder is distended and shows a calculus of size 3 mm with normal wall thickness.. The spleen, pancreas, and adrenal glands are unremarkable. The kidneys are normal in size and attenuation. There is no hydronephrosis or perinephric fat stranding. Tiny concretion noted in right kidney. The ureters are normal in caliber and no ureteral calculi are seen. The bladder is normal in contour. Pelvic viscera are unremarkable. No focal or diffuse bowel wall thickening or evidence of bowel obstruction is identified. The appendix is visualized in the right lower quadrant and appears within normal limits. Abdominal and pelvic vasculature is patent. No adenopathy or fluid collections are seen. No aggressive appearing osseous lesions are identified. IMPRESSION: 1. Multifocal consolidation with adjacent interlobular septal thickening are noted involving bilateral lower lobes and lingula.-new 2. Minimal synpneumonic bilateral pleural effusion.-new 3. Mild pericardial effusion.-new 4. Uncomplicated cholelithiasis.-stable. 5. Right renal concretion.-stable. 6. Hepatomegaly .-stable. Electronically signed by Nasim Swain 01-10-2025 07:04 AM
--- NOTE | 2025-01-10 07:17 | Hospitalist Progress Note ---
Date of Service January 10, 2025 Assessment & Plan (1) Sepsis: (2) RSV (acute bronchiolitis due to respiratory syncytial virus): (3) Pneumonia: (4) Abdominal pain: (5) HIV (human immunodeficiency virus infection): (6) COPD (chronic obstructive pulmonary disease): (7) Anxiety: Plan 44-year-old male with history of metastatic adrenal cancer status post lobectomy, status post splenectomy, fairly new diagnosis of HIV, COPD presenting with home with several days of not feeling well. Patient with sepsis present on admission (fever, tachycardia). Respiratory bio fire panel positive for RSV. Chest x-ray suggestive of multifocal pneumonia. Patient also with significant c omplaints of abdominal pain. #Sepsis with likely source PNA - S/p IVF per sepsis protocol in ED - procalcitonin = 0.47, no leukocytosis, afebrile so far today - CT Chest withMultiple patchy areas of interstitial septal thickening ground glass density forming areas of consolidation in basal segments of bilateral lower lobes, anterior segment of right upper lobe, lateral basal segment of right middle lobe and lingular segments. Blood cultures pending, sputum culture ordered CD4 count pending LDH 186patient is not overly hypoxic, low concern for PCP pneumonia Continue IV fluidsLR at 100 mL/h Tylenol as needed Ceftriaxone 1 g IV daily Doxycycline 100 mg IV twice daily #RSV Maintain isolation precautions Supportive care Tylenol as needed, Zofran as needed, Mucinex Flutter valve 4 times daily #Abdominal pain/bright red blood per rectum - LFTs are within normal limits - notes multiple soft BM, but no diarrhea, denies blood in stool CT abdomen without acute pathology that would account for pain - ?viral gastroenteritis - does note 2 episodes of bloody BM in the past couple of months; stable Hgb, no signs of current bleeding-> would consider outpatient colonoscopy Morphine as needed for pain control #HIVpatient initially did not mention his fairly new diagnosis of HIV. He reports that he has not told anyone that he has HIV since being diagnosed approximately 1 month ago. He does follow with infectious disease. Reports that his last CD4 count was "good ", is unsure of the number but thinks it may have been 5000 CD4 count is pending Continue home Biktarvy. Patient does have several days worth of medication in his bag. May need to bring additional medication from home depending on his length of stay #COPDpatient reports that he was diagnosed with early stages of emphysema several years ago. - new 2L oxygen requirement Continue supplemental oxygen as needed to maintain saturation with goal of 92% wheezoing improved with DuoNebs every 4 hours scheduled Albuterol neb every 2 hours as needed #Anxiety Continue hydroxyzine Continue escitalopram #BPH/Microscopic Hematuria Continue Flomax Patient reports that he has a cystoscopy scheduled for Sunday for workup of urinary issues Bladder scan with straight cath as needed #Electrolyte abnormalitiespatient with low magnesium as well as phosphorus levels Magnesium 2 g IV ordered Potassium phosphorus 12 mmol IV ordered Admission and Anticipated Discharge Date Admission Date: January 09, 2025 Supervising Physician Co-Signing Physician Notes I personally examined the patient and verified all shukla points of history and exam, discussed case, and agree with decision making with Dr Mcdermott seen twice - feeling miserable. chest pain with coughing. abdominal bloat and feels full/poor appetite. also feels miserable in the hospital relates having some hospital related PTSD given all he's been through and being inpatient and alone is very stressful too vitals noted fatigued and uncomfortable, pleasant but anxious. breathing unlabored on room air. no conversational dyspnea. abd soft mod distention nontender no guarding no rebound CAP - with sepsis present on admission - appearing both viral and secondary bacterial overgrowth. doxy, rocephin, supportive care. adjust symptomatic care. notes steroids cause a lot of agitation - will hold off abdominal bloating - suspect viral enteritis at core. discussed that he feels bloated and that he has to have BM but nothing will come out likely just due to intestinal inflammation. symptomatic/supportive care (pepcid, protonix, carafate, scheduled zofran) headache - related to all of above. above management and prns/pain control as well as trial of IV depakote x1 (discussed rationale, risk/benefit) DVT proph - lovenox Subjective Pt seen at bedside this morning. Continues with cough, minimally productive. Multiple loose BM per day. Bloody BM with straining about 5 days ago, no further episodes of blood in stool. Left sided intermittent abdominal pain, not worse with eating, cramping. Review of Systems Review of Systems: As per above Physical Exam Physical Exam: Constitutional: well-appearing, no acute distress HEENT: NCAT, no conjunctival injection CV: regular rhythm, no murmur appreciated, extremities well-perfused Resp: CTABL, no wheezes/rales, + rhonchi in bases, no increased work of breathing GI: soft, nondistended, nontender MSK: no gross deformities appreciated Skin: warm, dry, no rash appreciated Neuro: alert, oriented, no focal neurologic deficit appreciated Results & Data Results & Data Vital Signs (Past 12 Hours) Vital Signs Temp Pulse Pulse Resp BP BP Pulse Ox 01/10/25 03:24 112 H 26 H 98 01/10/25 02:42 01/10/25 02:42 36.7 C 107 H 20 101/68 97 01/10/25 02:14 36.7 C 107 H 20 101/68 97 01/10/25 02:06 106 H 01/10/25 01:27 37.7 C H 108 H 20 97/65 L 95 01/10/25 00:25 90 01/10/25 00:00 119 H 21 98/79 L 93 01/09/25 23:31 38.0 C H 123 H 24 125/68 97 01/09/25 23:00 124 H 21 109/82 94 01/09/25 22:00 129 H 20 137/87 94 01/09/25 21:59 126 H 01/09/25 20:28 37.1 C 136 H 20 142/75 H 98 O2 Del Method O2 Flow Rate 01/10/25 03:24 Nasal Cannula 2 01/10/25 02:42 Nasal Cannula 1 01/10/25 02:42 Nasal Cannula 1 01/10/25 02:14 Nasal Cannula 1 01/10/25 02:06 01/10/25 01:27 Nasal Cannula 2 01/10/25 00:25 Room Air, Nasal Cannula 0 01/10/25 00:00 Nasal Cannula 2 01/09/25 23:31 Room Air 01/09/25 23:00 Room Air 01/09/25 22:00 Room Air 01/09/25 21:59 01/09/25 20:28 Room Air Resident Activity Tracking Resident Involvement: Resident Care Provided Care Provided: Adult Hospital Medicine (1) Sepsis Sepsis acute organ dysfunction status: without acute organ dysfunction Sepsis type: sepsis due to unspecified organism Qualified Code(s): A41.9 - Sepsis, unspecified organism
--- NOTE | 2025-01-10 07:55 | CT Scan Report ---
EXAM: CT chest diagnostic wo con CLINICAL HISTORY: pneumonia, immunocompromised TECHNIQUE: Contiguous axial images were obtained from the neck base through the upper abdomen without contrast. In addition, sagittal and coronal reconstructions were performed to potentially increase the sensitivity for the detection of disease. CT scan was performed according to ALARA (as low as reasonable achievable). COMPARISON: 11/02/2024 09:36:59 BUSINESS CONSULTANT FINDINGS: [id number].[id number] patchy areas of interstitial septal thickening /OBX.5.1.1OBX.5.1.2 ground glass density forming areas of consolidation are noted in the basal segments of bilateral lower lobes, anterior segment of right upper lobe, lateral basal segment of right middle lobe and lingular segments. Rest of the lungs are clear. No pulmonary nodules are seen. The central airways are patent. There is bilateral trace pleural effusion. No pneumothorax is seen. Mild calcification along right diaphragmatic pleura./OBX.5.1.2/OBX.5.1 Evaluation of the mediastinum and koki is limited due to the lack of intravenous contrast. Few calcified mediastinal nodes. The thyroid is unremarkable. The heart, aorta, and pulmonary arteries are of normal size and configuration. There are no appreciable coronary artery and aortic atherosclerotic calcifications. Mild pericardial effusion is identified. Imaged portions of the upper abdomen are unremarkable. No aggressive appearing osseous lesions are identified. IMPRESSION: OBX.5.1OBX.5.1.11. Multiple patchy areas of interstitial septal thickening /OBX.5.1.1OBX.5.1.2 ground glass density forming areas of consolidation in basal segments of bilateral lower lobes, anterior segment of right upper lobe, lateral basal segment of right middle lobe and lingular segments. These findings with immunocompromised status are suggestive of infective etiology, likely atypical pneumonia (New finding)/OBX.5.1.2/OBX.5.1 Electronically signed by Nasim Swain 01-10-2025 07:55 AM
[2025-01-10] MEDS: MoRPHine SULFATE 2 MG/ML CARP IV PRN (08:39)
[2025-01-10] MEDS: ESCITALOPRAM OXALATE 20 MG TAB PO SCH (08:42)
[2025-01-10] MEDS: DOXYCYCLINE HYCLATE 100 MG in DEXTROSE 5% MINI-B 100 ML IV SCH (08:42)
[2025-01-10] MEDS: BENZONATATE 100 MG CAPSULE PO PRN (08:42)
[2025-01-10] MEDS: guaiFENesin 600 MG TABCR PO SCH (08:43)
[2025-01-10] MEDS: TAMSULOSIN HCL 0.4 MG CAP PO SCH (08:43)
[2025-01-10] MEDS: GABAPENTIN 600 MG TAB PO SCH (08:43)
[2025-01-10] MEDS: MoRPHine SULFATE 4 MG/ML 1 ML CARP\\VIAL IV PRN (11:41)
[2025-01-10] MEDS ORDERED: COUGH DROP (SUGAR FREE) LOZ 24 LOZ/1 BOX BUCCAL PRN (12:36)
[2025-01-10] MEDS: COUGH DROP (SUGAR FREE) LOZ 24 LOZ/1 BOX BUCCAL ONE (12:39)
[2025-01-10] MEDS: FAMOTIDINE 10 MG TABLET PO ONE (13:09)
[2025-01-10] MEDS: KETOROLAC TROMETHAMINE 15 MG/ML VIAL IV SCH (15:09)
[2025-01-10] MEDS ORDERED: HYDROmorphone INJ 0.5 MG/0.5 ML SYR IV PRN (17:21)
--- NOTE | 2025-01-10 17:30 | Billing Data ---
Date of Service January 10, 2025 Coding Level of Care Code 30541 SUB INP/OBS CARE MIN
[2025-01-10] MEDS: HYDROmorphone INJ 0.5 MG/0.5 ML SYR IV ONE (17:53)
[2025-01-10] MEDS: FAMOTIDINE 20MG IV PUSH 20 MG/5 ML SYR IV STA (17:54)
[2025-01-10] MEDS: ONDANSETRON INJ 2 MG/ML 2 ML VIAL IV SCH (17:59)
[2025-01-10] MEDS: ACETAMINOPHEN 325 MG TAB PO SCH (17:59)
[2025-01-10] MEDS: VALPROATE SOD 500 MG in DEXTROSE 5% 50 ML IV ONE (18:27)
[2025-01-10] MEDS: hydrOXYzine HCl 10 MG TAB PO PRN (20:56)
[2025-01-10] MEDS: PANTOprazole 40 MG TAB PO SCH (20:56)
[2025-01-10] MEDS: SUCRALFATE 1 GM/10 ML UDC PO SCH (20:56)
[2025-01-10] MEDS: cefTRIAXone SODIUM 1,000 MG/50 ML BAG IV SCH (21:00)
[2025-01-11] MEDS: FAMOTIDINE 20MG IV PUSH 20 MG/5 ML SYR IV SCH (05:48)
[2025-01-11 06:20] LABS: Hematocrit (blood only) 34.9 % (42.0-52.0); Hemoglobin 11.7 g/dl (14.0-18.0); Mean Corpuscular Hemoglobin 29.5 pg (25.0-34.0); Mean Corpuscular Hgb Conc 33.5 g/dL (32.0-36.0); Mean Corpuscular Volume 88.1 fL (80.0-100.0); Mean Platelet Volume 9.7 fL (9.4-12.4); Platelet Count 362 K/uL (130-400); RDW Coefficient of Variation 16.3 % (11.5-14.5); RDW Standard Deviation 53.2 fL (36.4-46.3); Red Blood Count 3.96 M/uL (4.70-6.10); White Blood Count 15.55 K/ul (4.8-10.8)
[2025-01-11 06:37] LABS: BUN Creatinine Ratio 12.4 (10-20); Calcium 8.5 mg/dl (8.6-10.3); Creatinine Clr Calc Pharmacy 88.6 ml/min; Potassium 3.8 mmol/L (3.5-5.1)
[2025-01-11 06:48] LABS: Basophils # (auto) 0.05 K/uL (0.00-0.20); Basophils % (auto) 0.3 %; Dohle Bodies 1+; Echinocytes 1+; Eosinophils # (auto) 0.13 K/uL (0.00-0.50); Eosinophils % (auto) 0.8 %; Immature Granulocytes % (auto) 1.3 %; Lymphocytes # (auto) 2.75 K/uL (1.20-3.40); Lymphocytes % (auto) 17.7 %; Monocytes # (auto) 1.89 K/uL (0.11-0.59); Monocytes % (auto) 12.2 %; Neutrophils # (auto) 10.53 K/uL (1.40-6.50); Neutrophils % (auto) 67.7 %; Polychromasia 1+; Toxic Vacuolation 1+
--- NOTE | 2025-01-11 08:29 | History & Physical Report ---
Date of Service January 11, 2025 Assessment & Plan (1) Sepsis: (2) RSV (acute bronchiolitis due to respiratory syncytial virus): (3) Pneumonia: (4) Abdominal pain: (5) HIV (human immunodeficiency virus infection): (6) COPD (chronic obstructive pulmonary disease): (7) Anxiety: Plan 44-year-old male with history of metastatic adrenal cancer status post lobectomy, status post splenectomy, fairly new diagnosis of HIV, COPD presenting with home with several days of not feeling well. Patient with sepsis present on admission (fever, tachycardia). Respiratory bio fire panel positive for RSV. Chest x-ray suggestive of multifocal pneumonia. Patient also with significant complaints of abdominal pain. #Sepsis with likely source PNA - S/p IVF per sepsis protocol in ED - procalcitonin = 0.47, no leukocytosis, afebrile so far today - CT Chest withMultiple patchy areas of interstitial septal thickening ground glass density forming areas of consolidation in basal segments of bilateral lower lobes, anterior segment of right upper lobe, lateral basal segment of ri ght middle lobe and lingular segments. Blood cultures pending, sputum culture ordered CD4 count pending LDH 186patient is not overly hypoxic, low concern for PCP pneumonia Continue IV fluidsLR at 100 mL/h Tylenol as needed Ceftriaxone 1 g IV daily Doxycycline 100 mg IV twice daily #RSV Maintain isolation precautions Supportive care Tylenol as needed, Zofran as needed, Mucinex Flutter valve 4 times daily #Abdominal pain/bright red blood per rectum - LFTs are within normal limits - notes multiple soft BM, but no diarrhea, denies blood in stool CT abdomen without acute pathology that would account for pain - ?viral gastroenteritis - does note 2 episodes of bloody BM in the past couple of months; stable Hgb, no signs of current bleeding-> would consider outpatient colonoscopy Morphine as needed for pain control #HIVpatient initially did not mention his fairly new diagnosis of HIV. He reports that he has not told anyone that he has HIV since being diagnosed approximately 1 month ago. He does follow with infectious disease. Reports that his last CD4 count was "good ", is unsure of the number but thinks it may have been 5000 CD4 count is pending Continue home Biktarvy. Patient does have several days worth of medication in his bag. May need to bring additional medication from home depending on his length of stay #COPDpatient reports that he was diagnosed with early stages of emphysema several years ago. - new 2L oxygen requirement Continue supplemental oxygen as needed to maintain saturation with goal of 92% wheezoing improved with DuoNebs every 4 hours scheduled Albuterol neb every 2 hours as needed #Anxiety Continue hydroxyzine Continue escitalopram #BPH/Microscopic Hematuria Continue Flomax Patient reports that he has a cystoscopy scheduled for Sunday for workup of urinary issues Bladder scan with straight cath as needed #Electrolyte abnormalitiespatient with low magnesium as well as phosphorus levels Magnesium 2 g IV ordered Potassium phosphorus 12 mmol IV ordered Admission and Anticipated Discharge Date Admission Date: January 09, 2025 History of Present Illness Primary Care Provider: Salena Akins Allergies Allergy/AdvReac Type Severity Reaction Status Date / Time No Known Allergies Allergy Verified 01/09/25 21:27 Home Medications Medication Instructions Recorded Confirmed Type L.acidop,casei,lactis,rham-B.lact,prerna 1 cap PO DAILY #10 caps 08/08/24 01/09/25 Rx 625 mg (10 billion cell) capsule (Advanced Probiotic) guaifenesin 600 mg tablet, 600 mg PO Q12 #14 tabs 08/08/24 01/09/25 Rx extended release 12 hr (Mucinex) tamsulosin 0.4 mg capsule 0.4 mg PO QAM #30 caps 08/08/24 01/09/25 Rx naproxen sodium 220 mg capsule 220 mg PO BID PRN Pain 12/10/24 01/09/25 History (Aleve) tadalafil 5 mg tablet 5 mg PO DAILY #90 tabs 12/10/24 01/09/25 Rx albuterol sulfate 90 mcg/actuation 2 puff inhalation Q6H PRN 01/09/25 01/09/25 History aerosol inhaler Shortness Of Breath Or Wheezing escitalopram oxalate 20 mg tablet 20 mg PO DAILY 01/09/25 01/09/25 History gabapentin 600 mg tablet 600 mg PO QID 01/09/25 01/09/25 History hydroxyzine HCl 10 mg tablet 10 mg PO TID PRN Anxiety 01/09/25 01/09/25 History Past Med/Surg History Problem List (Updated 01/10/25 @ 03:18 by Anastasiya Humphreys DO) Abdominal pain Pneumonia RSV (acute bronchiolitis due to respiratory syncytial virus) Tachycardia (Acute) Flu-like symptoms (Acute) Carcinoma, adrenal cortical Erectile dysfunction Lower urinary tract symptoms Hypomagnesemia (Acute) Right lower lobe pneumonia (Acute) Sepsis (Acute) Medical History (Updated 01/10/25 @ 03:18 by Anastasiya Humphreys DO) Anxiety COPD (chronic obstructive pulmonary disease) HIV (human immunodeficiency virus infection) Adrenal malignant neoplasm Surgical History (Updated 01/10/25 @ 03:15 by Anastasiya Humphreys DO) S/P splenectomy Social History Smoking Status: Former smoker Tobacco Type: Cigarettes Cigarettes Per Day: 3; Second Hand Exposure: Yes; Do You Dip or Chew Tobacco: No; Hx Alcohol Use: No Hx Substance Use: Yes Last Used Substance: Days (ago) Preferred Language: Citizen Of [place] Communication Ability: Effective [employer] Required: No Beliefs That Will Affect Care: None Current Living Situation: Other Current Living Situation Comment: living with partner Other Information That Helps Us Care for You: No Feels Safe at Home: No Is there a partner from a previous relationship who is making you feel unsafe now?: No Any Concerns about Your Family Situation: No Would You Like to Speak to Someone About Your Situation: No Safety Concerns: Feels Safe At This Time Assistive Devices: Denture - Upper, Denture - Lower and Glasses Results & Data Results & Data Vital Signs (Past 12 Hours) Vital Signs Temp Pulse Pulse Resp BP Pulse Ox O2 Del Method 01/11/25 07:56 36.7 C 81 16 110/75 95 Room Air 01/11/25 07:53 Room Air 01/11/25 05:40 99 H 01/11/25 03:26 36.6 C 89 18 97/66 L 97 Room Air 01/10/25 23:16 36.9 C 102 H 18 97/62 L 93 Room Air 01/10/25 23:13 99 H 18 95 Room Air 01/10/25 22:10 113 H 01/10/25 21:00 Room Air Supervising Physician Co-Signing Physician Notes I personally examined the patient and verified all shukla points of history and exam, discussed case, and agree with decision making with Dr Mcdermott seen twice - feeling miserable. chest pain with coughing. abdominal bloat and feels full/poor appetite. also feels miserable in the hospital relates having some hospital related PTSD given all he's been through and being inpatient and alone is very stressful too vitals noted fatigued and uncomfortable, pleasant but anxious. breathing unlabored on room air. no conversational dyspnea. abd soft mod distention nontender no guarding no rebound CAP - with sepsis present on admission - appearing both viral and secondary bacterial overgrowth. doxy, rocephin, supportive care. adjust symptomatic care. notes steroids cause a lot of agitation - will hold off abdominal bloating - suspect viral enteritis at core. discussed that he feels bloated and that he has to have BM but nothing will come out likely just due to intestinal inflammation. symptomatic/supportive care (pepcid, protonix, carafate, scheduled zofran) headache - related to all of above. above management and prns/pain control as well as trial of IV depakote x1 (discussed rationale, risk/benefit) DVT proph - lovenox PG Care Time/CCT Total # of Minutes Spent Total Time Spent with Patient: Total time spent is greater than 50% in coordination of care (as documented) at patient's floor/unit and/or counseling patient: Coding Diagnoses Sepsis A41.9 Sepsis acute organ dysfunction status: without acute organ dysfunction Sepsis type: sepsis due to unspecified organism RSV (acute bronchiolitis due to respiratory syncytial virus) J21.0 Pneumonia J18.9 Abdominal pain R10.9 HIV (human immunodeficiency virus infection) Z21 COPD (chronic obstructive pulmonary disease) J44.9 Anxiety F41.9 (1) Sepsis Sepsis acute organ dysfunction status: without acute organ dysfunction Sepsis type: sepsis due to unspecified organism Qualified Code(s): A41.9 - Sepsis, unspecified organism
--- NOTE | 2025-01-11 08:31 | Hospitalist Progress Note ---
Date of Service January 11, 2025 Assessment & Plan (1) Sepsis: (2) RSV (acute bronchiolitis due to respiratory syncytial virus): (3) Pneumonia: (4) Abdominal pain: (5) HIV (human immunodeficiency virus infection): (6) COPD (chronic obstructive pulmonary disease): (7) Anxiety: Plan 44-year-old male with history of metastatic adrenal cancer status post lobectomy, status post splenectomy, fairly new diagnosis of HIV, COPD presenting with home with several days of not feeling well. Patient with sepsis present on admission (fever, tachycardia). Respiratory bio fire panel positive for RSV. Chest x-ray suggestive of multifocal pneumonia. Patient also with significant complaints of abdominal pain. #Sepsis; suspected secondary to multifocal pneumonia - S/p IVF per sepsis protocol in ED - procalcitonin WNL at 0.47 on arrival - CT Chest withMultiple patchy areas of interstitial septal thickening ground glass density forming areas of consolidation in basal segments of bilateral lower lobes, anterior segment of right upper lobe, lateral basal segment of right middle lobe and lingular segments. - New leukocytosis on 01/11 of 15.55; afebrile Clinically, patient reports he if feeling better than yesterday Added on CRP & AM Procalcitonin MRSA swab negative D/C Ceftriaxone --> Switch to Cefepime 2000mg IV q8h Continue Doxycycline 100 mg IV twice daily Blood cultures without growth on 01/11 (>24h) - sputum culture pending CD4 count pending LDH 186patient is not overly hypoxic, low concern for PCP pneumonia Tylenol as needed #RSV Maintain isolation precautions Supportive care Tylenol as needed, Zofran as needed, Mucinex Flutter valve 4 times daily #Abdominal pain/bright red blood per rectum - LFTs are within normal limits - notes multiple soft BM, but no diarrhea, denies blood in stool CT abdomen without acute pathology that would account for pain - ?viral gastroenteritis - does note 2 episodes of bloody BM in the past couple of months; stable Hgb, no signs of current bleeding-> would consider outpatient colonoscopy - Famotidine 20 mg IV q12h - Simethicone chews q6h PRN - Protonix 40mg p.o. BID Hydromorphone as needed for breakthrough pain #HIVpatient initially did not mention his fairly new diagnosis of HIV. He reports that he has not told anyone that he has HIV since being diagnosed approximately 1 month ago. He does follow with infectious disease. Reports that his last CD4 count was "good ", is unsure of the number but thinks it may have been 5000 CD4 count is pending Continue home Biktarvy. Patient does have several days worth of medication in his bag. May need to bring additional medication from home depending on his length of stay #COPDpatient reports that he was diagnosed with early stages of emphysema several years ago. - new 2L oxygen requirement Continue supplemental oxygen as needed to maintain saturation with goal of 92% wheezoing improved with DuoNebs every 4 hours scheduled Albuterol neb every 2 hours as needed #Anxiety Continue hydroxyzine Continue escitalopram #BPH/Microscopic Hematuria Continue Flomax Patient reports that he has a cystoscopy scheduled for Friday 01/12 for workup of urinary issues Reached out to case management to potentially reschedule Bladder scan with straight cath as needed #Electrolyte abnormalitiespatient with low magnesium as well as phosphorus levels Magnesium 2 g IV ordered Potassium phosphorus 12 mmol IV ordered Disposition: Continued stay on [facility] telemetry VTE PPx: Lovenox 40 mg SQ QAM Admission and Anticipated Discharge Date Admission Date: January 09, 2025 Subjective Gerardo reports he is doing much better this morning. He has had no respiratory distress at rest or when he gets up to walk to the bathroom. He also reports that he had everything to eat for breakfast this morning, and his stomach is feeling much better. Overall, his largest concern is ongoing abdominal bloating and pressure. He tried to make himself vomit yesterday due to the abdominal pressure, but was unable to. From a breathing perspective, he has not required supplemental oxygen today. He is still coughing (productive; creamy yellow), and he did have an episode of blood in his cough yesterday, but nothing today. Additionally, he has been lightheaded when he is getting [facility] to [id number]. ROS: Patient endorses lightheadedness, productive cough, hemoptysis, abdominal bloating/pressure, and soft stool (Marquis-like in consistency). Patient denies fever, chills, night sweats, chest pain, pleuritic chest pain, chest palpitations, SOB at rest or with exertion, nausea, vomiting, or numbness/tingling/redness/pain in the legs. Review of Systems Review of Systems: As HPI above Physical Exam Physical Exam: General: no acute distress; pleasant affect; non-toxic appearing; well- nourished; cooperative; SpO2 95% on RA HEENT: normocephalic, atraumatic; no scleral icterus; PERRLA; vision and hearing grossly intact Neck: supple; no lymphadenopathy; trachea midline Skin: warm, dry without signs of tenting; no cyanosis; no rashes, bruising, lesions, or erythema noted CV: chest wall NTP; RRR; S1/S2 normal; no murmurs/rubs/gallops; pulses intact and symmetric at radial, DP, and PT Lungs: no acute respiratory distress; symmetrical chest wall expansion; mild expiratory wheeze auscultated in the lower lung leon bilaterally ABD: Soft, NTP; BS present; no rebound/guarding; no distention MSK: no tics or fasciculations; no edema noted in the LEs b/l, nonerythematous Neuro: A&Ox3; normal mood and affect; fluent speech; no focal deficits; sensation intact and symmetric in the lower extremities bilaterally Results & Data Results & Data Vital Signs (Past 12 Hours) Vital Signs Temp Pulse Pulse Resp BP Pulse Ox O2 Del Method 01/11/25 07:56 36.7 C 81 16 110/75 95 Room Air 01/11/25 07:53 Room Air 01/11/25 05:40 99 H 01/11/25 03:26 36.6 C 89 18 97/66 L 97 Room Air 01/10/25 23:16 36.9 C 102 H 18 97/62 L 93 Room Air 01/10/25 23:13 99 H 18 95 Room Air 01/10/25 22:10 113 H 01/10/25 21:00 Room Air PG Care Time/CCT Total # of Minutes Spent Total Time Spent with Patient: Total time spent is greater than 50% in coordination of care (as documented) at patient's floor/unit and/or counseling patient: Coding [place] [address] SUB INP/OBS CARE 3/50MIN Patient Type Established History Comprehensive Exam Comprehensive Medical Decision Making High Complexity Diagnoses Sepsis A41.9 Sepsis acute organ dysfunction status: without acute organ dysfunction Sepsis type: sepsis due to unspecified organism RSV (acute bronchiolitis due to respiratory syncytial virus) J21.0 Pneumonia J18.9 Abdominal pain R10.9 HIV (human immunodeficiency virus infection) Z21 COPD (chronic obstructive pulmonary disease) J44.9 Anxiety F41.9 (1) Sepsis Sepsis acute organ dysfunction status: without acute organ dysfunction Sepsis type: sepsis due to unspecified organism Qualified Code(s): A41.9 - Sepsis, unspecified organism
[2025-01-11] MEDS: SIMETHICONE 80 MG CHEW PO PRN (08:50)
[2025-01-11] MEDS: ENOXAPARIN INJ 40 MG/0.4 ML SYR SQ SCH (08:51)
[2025-01-11 09:00] LABS: Magnesium 1.9 mg/dl (1.7-2.4)
[2025-01-11 15:48] LABS: C Reactive Protein 33.46 mg/dl (0-0.5)
[2025-01-11] MEDS: CEFEPIME 2000MG 2,000 MG/20 ML SYR IV SCH (17:03)
[2025-01-11] MEDS: OLANZAPINE 2.5 MG TAB PO ONE (17:44)
[2025-01-12 07:12] LABS: Howell-Jolly Bodies Occasional
[2025-01-12 07:58] LABS: Hematocrit (blood only) 36.6 % (42.0-52.0); Hemoglobin 12.1 g/dl (14.0-18.0); Mean Corpuscular Hemoglobin 28.6 pg (25.0-34.0); Mean Corpuscular Hgb Conc 33.1 g/dL (32.0-36.0); Mean Corpuscular Volume 86.5 fL (80.0-100.0); Mean Platelet Volume 9.9 fL (9.4-12.4); Platelet Count 429 K/uL (130-400); RDW Coefficient of Variation 17.4 % (11.5-14.5); Red Blood Count 4.23 M/uL (4.70-6.10); White Blood Count 11.74 K/ul (4.8-10.8)
[2025-01-12 08:39] LABS: Basophils # (auto) 0.04 K/uL (0.00-0.20); Basophils % (auto) 0.3 %; Dohle Bodies 1+; Echinocytes 2+; Eosinophils # (auto) 0.14 K/uL (0.00-0.50); Eosinophils % (auto) 1.2 %; Immature Granulocytes # (auto) 0.12 K/uL (0.01-0.20); Lymphocytes # (auto) 2.92 K/uL (1.20-3.40); Lymphocytes % (auto) 24.9 %; Monocytes # (auto) 1.25 K/uL (0.11-0.59); Monocytes % (auto) 10.6 %; Neutrophils # (auto) 7.27 K/uL (1.40-6.50); Toxic Vacuolation 1+
--- NOTE | 2025-01-12 12:30 | Hospitalist Progress Note ---
Date of Service January 12, 2025 Assessment & Plan (1) Sepsis: (2) RSV (acute bronchiolitis due to respiratory syncytial virus): (3) Pneumonia: (4) Abdominal pain: (5) HIV (human immunodeficiency virus infection): (6) COPD (chronic obstructive pulmonary disease): (7) Anxiety: Plan 44-year-old male with history of metastatic adrenal cancer status post lobectomy, status post splenectomy, fairly new diagnosis of HIV, COPD presenting with home with several days of not feeling well. Patient with sepsis present on admission (fever, tachycardia). Respiratory bio fire panel positive for RSV. Chest x-ray suggestive of multifocal pneumonia. Patient also with significant complaints of abdominal pain. #Sepsis; suspected secondary to multifocal pneumonia Received sepsis guideline fluids in the ER Procalcitonin elevated on arrival suspicious for sepsis versus pneumonia CTchest with multifocal pneumonia Leukocytosis worsened on initial Rocephin/Doxy and patient without clinical improvement, subsequently improving after transition to cefepime Doing well 01/12. Will transition to Levaquin. Due to elevated Pro-Ken, immune compromise, increased risk with need for escalation of pseudomonal coverage will watch on Levaquin for 24 hours and if hemodynamically stable anticipate discharge to complete 7-day course of Levaquin as outpatient. If patient is very anxious and wishes to leave the hospital 01/12 I feel it is reasonable to call in a course of Levaquin for him at that point and did discuss potential discard versus 1 day of ongoing monitoring. Given his initial worsening and immunocompromise I again feel it is reasonable to make sure that he is stable on Klas switched to Levaquin while final cultures are pending Sputum culture pending, preliminary with heavy medhat #RSV Maintain isolation precautions Supportive care Tylenol as needed, Zofran as needed, Mucinex Flutter valve 4 times daily #Abdominal pain/bright red blood per rectum Symptoms resolved No ongoing bleeding Will need follow-up for outpatient colonoscopy #HIV patient initially did not mention his fairly new diagnosis of HIV. He reports that he has not told anyone that he has HIV since being diagnosed approximately 1 month ago. He does follow with infectious disease. Reports that his last CD4 count was "good ", is unsure of the number but thinks it may have been 5000 CD4 count is pending Continue home Biktarvy. Patient does have several days worth of medication in his bag. May need to bring additional medication from home depending on his length of stay #COPD patient reports that he was diagnosed with early stages of emphysema several years ago. - new 2L oxygen requirement on admission, has been weaned to room air Continue supplemental oxygen as needed to maintain saturation with goal of 92% wheezoing improved with DuoNebs every 4 hours scheduled Albuterol neb every 2 hours as needed #Anxiety Continue hydroxyzine Continue escitalopram Patient has extreme anxiety with some panic in the evenings. Would prefer to avoid benzos if possible. Had good effect from olanzapine 2.5 mg p.o., can retry this in the evening if needed #BPH/Microscopic Hematuria Continue Flomax Patient reports that he has a cystoscopy scheduled for Friday 01/12 for workup of urinary issues Cystoscopy being rescheduled DVT prophylaxis: Lovenox Admission and Anticipated Discharge Date Admission Date: January 09, 2025 Subjective Feels his breathing is similar to slightly improved compared to prior. Continues to have a cough productive for some yellow sputum but this is much muff winder in color today than it was yesterday. No fevers and chills overnight. Still feels tired and achy. He is anxious but reports that the medicine last night helped. Physical Exam Physical Exam: General: A&Ox3. NAD. Cooperative. Anxious affect HEENT: Atraumatic, normocephalic. Vision and hearing grossly intact Pulm: Coarse in the bases bilaterally. Symmetrical chest rise. No increase in work of breathing. No respiratory distress. Cardiac: RRR, -mrg. Radial pulses intact and symmetrical. Abdominal: Nontender, nondistended, soft. BS present. Results & Data Results & Data Vital Signs (Past 12 Hours) Vital Signs Temp Pulse Resp BP Pulse Ox O2 Del Method 01/12/25 11:30 36.7 C 80 16 115/76 95 Room Air 01/12/25 10:59 80 18 97 Room Air 01/12/25 07:58 36.7 C 73 20 108/67 95 Room Air 01/12/25 07:48 Room Air 01/12/25 03:33 37.1 C 98 H 20 118/80 94 Room Air PG Care Time/CCT Total # of Minutes Spent Total Time Spent with Patient: Total time spent is greater than 50% in coordination of care (as documented) at patient's floor/unit and/or counseling patient: Coding Level of Care Code 61951 SUB INP/OBS CARE 350MIN Diagnoses Sepsis A41.9 Sepsis acute organ dysfunction status: without acute organ dysfunction Sepsis type: sepsis due to unspecified organism RSV (acute bronchiolitis due to respiratory syncytial virus) J21.0 Pneumonia J18.9 Abdominal pain R10.9 HIV (human immunodeficiency virus infection) Z21 COPD (chronic obstructive pulmonary disease) J44.9 Anxiety F41.9 (1) Sepsis Sepsis acute organ dysfunction status: without acute organ dysfunction Sepsis type: sepsis due to unspecified organism Qualified Code(s): A41.9 - Sepsis, unspecified organism
[2025-01-12] MEDS: levoFLOXacin/D5W 750 MG/150 ML BAG IV STA (15:07)
[2025-01-12] MEDS: OLANZAPINE 2.5 MG TAB PO ONE (20:12)
[2025-01-12 20:49] VITALS: RESP 18
--- NOTE | 2025-01-13 07:19 | Discharge Summary ---
Discharge Summary Date of Service January 13, 2025 Principal Dx & Hospital Course #1 = Principal Diagnosis (1) Sepsis: (2) RSV (acute bronchiolitis due to respiratory syncytial virus): (3) Pneumonia: (4) Abdominal pain: (5) HIV (human immunodeficiency virus infection): (6) COPD (chronic obstructive pulmonary disease): (7) Anxiety: Plan 44-year-old male with history of metastatic adrenal cancer status post lobectomy, status post splenectomy, fairly new diagnosis of HIV, COPD presenting with home with several days of not feeling well. Patient with sepsis present on admission (fever, tachycardia). Respiratory bio fire panel positive for RSV. Chest x-ray suggestive of multifocal pneumonia. Patient was progressing expectorating well after treatment on Levaquin. Hypoxia resolved, leukocytosis downtrending nearly resolved. Was discharged to complete Levaquin and outpatient follow-up. #Sepsis; suspected secondary to multifocal pneumonia Received sepsis guideline fluids in the ER Procalcitonin elevated on arrival suspicious for sepsis versus pneumonia CTchest with multifocal pneumonia Leukocytosis worsened on initial Rocephin/Doxy and patient without clinical improvement, subsequently improving after transition to cefepime Continue to progress well on Levaquin. Was discharged to complete an antibiotic course with Levaquin and follow-up to his PCP and infectious disease specialist Blood cultures normal, sputum culture with heavy normal medhat #RSV Supportive care, patient was kept on isolation precautions with flutter valve and Tylenol/Zofran/Mucinex as needed #Abdominal pain/bright red blood per rectum Symptoms resolved No ongoing bleeding Will need follow-up for outpatient colonoscopy #HIV CD4 count pending Appropriate leukocytosis response Follow-up with infectious disease Continue Biktarvy #COPD patient reports that he was diagnosed with early stages of emphysema several years ago. -Transient 2 L oxygen requirement while admitted Was weaned to room air at time of discharge. 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 Status post splenectomy. Patient with recent HIV diagnosis on Biktarvy. Patient reports starting to feel ill on January 04 with some congestion, cough, sore throat. He was seen by his PCP on 01/07, Told that his symptoms were likely viral in nature. No antibiotics administered. Patient reports that his symptoms have progressively worsened since 01/07. Patient reports ongoing cough productive for dark yellow sputum, occasionally pink in color as well, as well as pain in his chest and back that occur during the cough, worsening reflux symptoms, nausea. Also with likely fever - reports he has two new non-touch thermometers at home, neither of which work very well. Today prior to arrival he did develop severe lower abdominal cramping with some abdominal distention followed by a large non-bloody BM. He did have some blood on the toilet paper after wiping earlier in the week which occurred after straining to have a BM but has not experienced blood since. In the ER patient is febrile, tachycardic, borderline low BP, saturations of 90- 91% on room air during my encounter - placed on 2L NC with improvement ER Course: Tylenol 1gm NSS x 2L Hydrocodone 5mL Albuterol neb Ceftriaone 2gm Pepcid 20mg Maalox/Simethicone Toradol 10mg IV Doxycycline 100mg IV Discharge Exam Patient was discharged prior to being seen on rounds. Did call patient by phone. He reports that he has been expectorating more sputum and while he still feels tired overall thinks he is getting better and is glad that he is now coughing up mucus rather than the feeling of stuck in his chest. No fevers overnight. No hypoxia. Is comfortable with the current plan to continue Levaquin and will follow-up with his primary care doctor within 1 week, an appointment is pending. Discharge Plan Discharge Items Patient Disposition: Home - Self-Care Reason For Visit: ASPLENIA,PNA Discharge Diagnosis: Multifocal pneumonia Activity: Resume your previous activity Non-emergency contact: Primary Care Provider Call non-emergency contact if: you have any medication questions, your symptoms worsen and your pain is not controlled Follow-up/Referrals: Salena Akins [Primary Care Provider] - (PLEASE CALL YOUR PRIMARY CARE PROVIDER TO SCHEDULE A HOSPITAL FOLLOW-UP APPOINTMENT WITHIN 7-10 DAYS) Diet: Regular Addtl Attending Provider Instructions: You are seen in the hospital for multifocal pneumonia. You are initially treated with ceftriaxone/doxycycline during admission but continued to worsen on this regimen and were switched to cefepime. After clinical improvement you were switched to levofloxacin which has a oral pill available for outpatient treatment and continue to improve on this medicine. You have been discharged to complete a course of levofloxacin as noted below. Please continue to take levofloxacin 750 mg by mouth for 1 week. This antibiotic can cause your tendons and connective tissue to be weaker than they normally would be for several weeks. Please avoid strenuous gym activity, heavy lifting, long running and other stressful activity until you have completely recovered. You had blood cultures and sputum cultures drawn while you were admitted. Your blood cultures did not show any growth at 48 hours however will take up to 5 days for final results to be posted. Please follow-up with your primary care doctor regarding the final results of your blood cultures. Your sputum culture showed heavy medhat, but did not indicate a specific bacteria that was causing your infection. You are positive for RSV, a type of respiratory virus during admission. Viruses do not require antibiotic treatment and recover with time and the majority of cases. Due to your uptrending white blood cell count, findings on x-ray, and elevated procalcitonin you were suspected to have a superimposed bacterial pneumonia on top of this and were treated with antibiotics as noted above. Please continue to follow-up with your primary care doctor and infectious disease specialist. Please let your infectious disease specialist know that you were in the hospital and were treated for RSV and multifocal pneumonia. A CD4 count was ordered while in the hospital however this was a send out lab test and results were not available at your time of discharge. Your primary care doctor or infectious disease specialist should draw a blood count and CRP within 1 week to ensure continued improvement. If there is any concern for ongoing pneumonia repeat imaging or a antibiotic extension could be discussed at that time. If you develop any new or worsening symptoms including fever, chills, sweats, chest pain, chest pressure, difficulty breathing, uncontrolled nausea/vomiting, rash, wheezing, passing out or nearly passing out, bleeding, black/bloody bowel movements, or other new or concerning symptoms please call your primary care physician, or call 911 for re-evaluation in the emergency department if you are very concerned. Pending Studies at Discharge: No Stand-Alone Forms: My [employer], Smoking Cessation Medications and DC Order Prescriptions: New levofloxacin 750 mg tablet 750 mg PO DAILY 7 Days Qty: 7 0RF Continued naproxen sodium [Aleve] 220 mg capsule 220 mg PO BID PRN (Reason: Pain) tadalafil 5 mg tablet 5 mg PO DAILY Qty: 90 3RF tamsulosin 0.4 mg Capsule 0.4 mg PO QAM Qty: 30 0RF guaifenesin [Mucinex] 600 mg Tablet Extended Release 12hr 600 mg PO Q12 Qty: 14 0RF Rx Instructions: OTC Advanced Probiotic 625 mg (10 billion cell) Capsule 1 cap PO DAILY Qty: 10 0RF gabapentin 600 mg tablet 600 mg PO QID albuterol sulfate 90 mcg/actuation HFA aerosol inhaler 2 puff INHALATION Q6H PRN (Reason: Shortness Of Breath Or Wheezing) hydroxyzine HCl 10 mg tablet 10 mg PO TID PRN (Reason: Anxiety) escitalopram oxalate 20 mg tablet 20 mg PO DAILY Discharge Orders: Discharge Order (Routine); Ordered 01/13/25 Ordered By: Donald Lim Admission Data Admit Date/Time: 01/09/25 23:50 Attending Provider: Donald Lim Admit Provider: Anastasiya Humphreys Primary Care Provider: Salena Akins Other Providers: Anastasiya Humphreys Other Interventions: Discharge Summary Assessment (RN) Last Done: 01/13/25 07:53 Hospital Stay Data Consultations 01/09/25 23:45 ED Decision to Admit Stat Diagnostic Imagining Performed 01/10/25 03:07 CT Abd and Pelvis [CT abdomen pelvis wo/w con] Routine 01/10/25 03:11 CT chest diagnostic wo con Routine Discharge Instructions Given to Patient (Per Discharging Provider) You are seen in the hospital for multifocal pneumonia. You are initially treated with ceftriaxone/doxycycline during admission but continued to worsen on this regimen and were switched to cefepime. After clinical improvement you were swi tched to levofloxacin which has a oral pill available for outpatient treatment and continue to improve on this medicine. You have been discharged to complete a course of levofloxacin as noted below. Please continue to take levofloxacin 750 mg by mouth for 1 week. This antibiotic can cause your tendons and connective tissue to be weaker than they normally would be for several weeks. Please avoid strenuous gym activity, heavy lifting, long running and other stressful activity until you have completely recovered. You had blood cultures and sputum cultures drawn while you were admitted. Your blood cultures did not show any growth at 48 hours however will take up to 5 days for final results to be posted. Please follow-up with your primary care doctor regarding the final results of your blood cultures. Your sputum culture showed heavy medhat, but did not indicate a specific bacteria that was causing your infection. You are positive for RSV, a type of respiratory virus during admission. Viruses do not require antibiotic treatment and recover with time and the majority of cases. Due to your uptrending white blood cell count, findings on x-ray, and elevated procalcitonin you were suspected to have a superimposed bacterial pneumonia on top of this and were treated with antibiotics as noted above. Please continue to follow-up with your primary care doctor and infectious disease specialist. Please let your infectious disease specialist know that you were in the hospital and were treated for RSV and multifocal pneumonia. A CD4 count was ordered while in the hospital however this was a send out lab test and results were not available at your time of discharge. Your primary care doctor or infectious disease specialist should draw a blood count and CRP within 1 week to ensure continued improvement. If there is any concern for ongoing pneumonia repeat imaging or a antibiotic extension could be discussed at that time. If you develop any new or worsening symptoms including fever, chills, sweats, chest pain, chest pressure, difficulty breathing, uncontrolled nausea/vomiting, rash, wheezing, passing out or nearly passing out, bleeding, black/bloody bowel movements, or other new or concerning symptoms please call your primary care physician, or call 911 for re-evaluation in the emergency department if you are very concerned. Total Time Total Time Spent Total Time Spent (In Minutes): Time spend day of discharge 25 minutes including documentation, review of labs and images, and coordination of care. Coding Level of Care Code None Diagnoses Sepsis A41.9 Sepsis acute organ dysfunction status: without acute organ dysfunction Sepsis type: sepsis due to unspecified organism RSV (acute bronchiolitis due to respiratory syncytial virus) J21.0 Pneumonia J18.9 Abdominal pain R10.9 HIV (human immunodeficiency virus infection) Z21 COPD (chronic obstructive pulmonary disease) J44.9 Anxiety F41.9
[2025-01-13 07:46] VITALS: TEMP 98.4; O2SAT 96
[2025-01-13 07:57] VITALS: BP 121/80; PULSE 107
[2025-01-13 20:23] LABS: LSP % Cells Analyzed CD4 21 % (30-61); LSP Absolute Ct CD4 271 cells/uL (490-1740); LSP Lymphocytes Absolute 1308 cells/uL (850-3900)
== END 2025-01-13 08:05 | disposition home or self-care (01) | DRG 871 ==
LOC: ED 20:28 → 2W 23:50 → SUATTDRO 23:50 → 2W 01-10 01:27